=== PATIENT | male | born 1940 | race African-American/Black ===

== ENCOUNTER 2020-10-05 17:01 | Inpatient (IN) | payer OTHER ==
[~2020-10-05] VITALS: Ht 172.7 cm; Wt 108.0 kg
[2020-10-05] MEDS ORDERED: SODIUM CHLORIDE 0.9% 1,000 ML IV ONE ×2 (17:45)
[2020-10-05] MEDS ORDERED: PIPERACILLIN-TAZOB 3.375GM 100 ML IV ONE (17:45)
[2020-10-05 19:47] LABS: Basophils # (auto) 0 10 ^3/uL (0-0.2); Basophils % (auto) 0.8 % (0.0-2.0); Eosinophils # (auto) 0.1 10 ^3/uL (0-0.8); Hematocrit 39.1 % (41.0-53.0); Lymphocytes % (auto) 26.2 % (10.0-50.0); Mean Corpuscular Hgb Conc. 33.2 g/dL (32.0-36.0); Mean Corpuscular Volume 87.4 fL (80.0-100.0); Monocytes # (auto) 0.3 10 ^3/uL (0-1.3); Monocytes % (auto) 8.8 % (0.0-12.0); Neutrophils # (auto) 2.2 10 ^3/uL (1.6-8.6); Neutrophils % (auto) 60.2 % (37.0-80.0); Nucleated Red Blood Cells % 0.2 %; Platelet Count (auto) 170 10^3/uL (140-450); Red Blood Cells 4.47 10^6/uL (4.5-5.90); Red Cell Distribution Width 15.1 % (11.8-14.3); White Blood Cell 3.7 10^3/uL (4.4-10.8)
[2020-10-05 20:07] LABS: Albumin 3.4 g/dL (3.4-5.0); Potassium 4.2 mmol/L (3.5-5.1)
[2020-10-05 20:10] LABS: BUN/Creatinine Ratio 15.9; Bilirubin, Total 0.4 mg/dL (0.2-1.0); Lactic Acid w/Reflex 2.5 mmol/L (0.4-2.0); Total Protein 8.1 g/dL (6.4-8.2)
[2020-10-05] MEDS ORDERED: LABETALOL HCL 5 MG/ML 4ML SYRINGE IV ONE (22:00)
[2020-10-05] MEDS ORDERED: MORPHINE SULFATE 4 MG/ML SYR/VIAL IV PRN (22:30)
[2020-10-05] MEDS ORDERED: ONDANSETRON HCL 4 MG/2 ML VIAL IV PRN (22:30)
[2020-10-05] MEDS ORDERED: NITROGLYCERIN 0.4 MG SL TAB SL PRN (22:30)
[2020-10-05] MEDS ORDERED: MORPHINE SULF INJ 2 MG/ML SYRINGE 1ML IV PRN (22:30)
[2020-10-05] MEDS ORDERED: HYDROcodone-ACET 5/325MG TAB PO PRN (22:30)
[2020-10-05] MEDS ORDERED: DEXTROSE (50%) 50ML SYRG IV PRN (22:30)
[2020-10-05] MEDS: hydrALAZINE HCL 20 MG/ML VL IV PRN (23:25)
[2020-10-06] VITALS (7 sets, daily range): BP systolic 159–202; BP diastolic 77–101
--- NOTE | 2020-10-06 00:24 | NUR ---
Telemetry admit from ER LIZET BRENNAN admitted to Telemetry unit. Patient oriented to ANNE WALLS RN primary RN, unit, room, bed, and unit policies regarding patient care and visiting hours. Patient now on continuous telemetry monitoring, tele box #87 and telemetry reading on arrival to unit is 86. Patient weighed by bedscale and encouraged to call if they need something. All questions and concerns addressed, patient verbalized understanding. Will continue to monitor.
--- NOTE | 2020-10-06 01:05 | NUR ---
Paged Hospitalist Patient's blood pressure 199/97. Paged Hospitalist. Received new orders for hydralazine 50mg PO TID start NOW and amlodipine 10mg PO qd start NOW. Orders read back and verified. Will carry out and will continue to monitor.
[2020-10-06] MEDS: hydrALAZINE HCL 25 MG TAB PO SCH ×4 (01:15→21:57)
[2020-10-06] MEDS: amLODIPine BESYLATE 5 MG TAB PO SCH ×2 (01:15→10:10)
[2020-10-06] MEDS: hydrALAZINE HCL 20 MG/ML VL IV PRN ×3 (03:34→23:50)
[2020-10-06] MEDS: SODIUM CHLOR 0.9% PF (SALINE LOCK) 10ML VIAL/SYR IV SCH ×3 (06:29→21:56)
[2020-10-06] MEDS: ACCU-CHEK COMFORT CURVE STRIP VI SCH ×4 (06:30→21:57)
[2020-10-06] MEDS: InsuLIN REG 1unit/0.01ml Soln (100units/ml) SC SCH ×4 (06:30→22:00)
[2020-10-06 07:12] LABS: Basophils # (auto) 0 10 ^3/uL (0-0.2); Basophils % (auto) 0.6 % (0.0-2.0); Eosinophils # (auto) 0.1 10 ^3/uL (0-0.8); Eosinophils % (auto) 3.1 % (0.0-7.0); Hematocrit 40.2 % (41.0-53.0); Hemoglobin 12.8 g/dL (13.5-17.5); Lymphocytes # (auto) 0.9 10 ^3/uL (0.4-5.4); Lymphocytes % (auto) 24.9 % (10.0-50.0); Mean Corpuscular Hemoglobin 27.7 pg (28.0-32.0); Mean Corpuscular Hgb Conc. 31.9 g/dL (32.0-36.0); Mean Corpuscular Volume 86.7 fL (80.0-100.0); Monocytes # (auto) 0.4 10 ^3/uL (0-1.3); Monocytes % (auto) 11.5 % (0.0-12.0); Neutrophils # (auto) 2.2 10 ^3/uL (1.6-8.6); Neutrophils % (auto) 59.9 % (37.0-80.0); Nucleated Red Blood Cells % 0.3 %; Platelet Count (auto) 162 10^3/uL (140-450); Red Blood Cells 4.64 10^6/uL (4.5-5.90); Red Cell Distribution Width 15.1 % (11.8-14.3); White Blood Cell 3.7 10^3/uL (4.4-10.8)
[2020-10-06 07:23] LABS: Albumin 3.1 g/dL (3.4-5.0); Calcium 9.1 mg/dL (8.5-10.1)
[2020-10-06 07:30] LABS: BUN/Creatinine Ratio 15.9; Bilirubin, Total 0.5 mg/dL (0.2-1.0); Total Protein 7.5 g/dL (6.4-8.2)
--- NOTE | 2020-10-06 07:40 | NUR ---
Opening Shift Note Assumed care of patient, awake and alert. No S/S of distress/SOB or pain. Instructed on POC and to call for assist PRN, will continue to monitor for changes Q1hr and PRN.
--- NOTE | 2020-10-06 07:40 | NUR ---
Paged Hospitalist Paged hospitalist regarding blood pressure 192/86 after administration of scheduled blood pressure medication. Received new order for hydralazine 10mg IV ONCE NOW and to increase hydralazine 10mg IV q4hr PRN to hydralazine 20mg IV q4hr for SBP >160. Orders read back and verified. Will carry out and will continue to monitor.
[2020-10-06] MEDS ORDERED: hydrALAZINE HCL 20 MG/ML VL IV ONE (07:45)
[2020-10-06] MEDS: ZINC SULFATE 220mg CAP or TAB PO SCH (10:00)
[2020-10-06] MEDS: ASCORBIC ACID 500 MG TAB PO SCH ×2 (10:06→21:57)
[2020-10-06] MEDS: FAMOTIDINE 20 MG TAB PO SCH ×2 (10:06→21:57)
[2020-10-06] MEDS: MULTIPLE VITAMIN TAB PO SCH (10:06)
[2020-10-06] MEDS: cefTRIAXone 1GM/50ML D5W 50 ML IV SCH (10:11)
--- NOTE | 2020-10-06 10:45 | NUR ---
WOUND CARE NOTE: IN TO SEE PATIENT AT THIS TIME PER WOUND CARE CONSULT REQUEST. PATIENT ADMITTED TO [facility] WITH DIAGNOSIS OF RIGHT FOOT INFECTION. CURRENT SHELIA SCORE IS 19. PATIENT IS ABLE TO SELF AMBULATE, TURN/REPOSITION SELF. WOUND PHOTO TAKEN UPON ADMIT, BY BEDSIDE NURSE FOR REFERENCE. PATIENT STATES THAT HE HAS HAD WOUND FOR AT LEAST 1.5 YEARS. HE RECEIVES HOME HEALTHCARE/DRESSING CHANGES. HIS PCP ADVISED HIM TO GO THE ER, SCAN IS QUESTIONABLE FOR OSTEOMYELITIS IN HALLUX BONE. PODIATRY CONSULT PENDING. 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 75 PERCENT OF WOUND BED IS COVERED IN BLACK ESCHAR SCAB. REMAINING 25 PERCENT IS OPEN WITH DUSKY RED WOUND BED. CLEANSED WOUND WITH WOUND CLEANSER, PATTED DRY WITH STERILE GAUZE. APPLIED THERAHONEY INTO OPEN WOUND BED, BETADINE IRRIGATION TO BLACK ESCHAR PORTION OF WOUND. COVERED WITH TELFA, WRAPPED FOOT WITH KERLIX, SECURING WITH TAPE. RECOMMEND: SKIN/WOUND CARE PLAN, ELEVATION OF RIGHT FOOT UP ON PILLOWS FOR EDEMA CONTROL; EOD/PRN DRESSING CHANGE, PODIATRY CONSULT (PENDING); DIETARY CONSULT (ORDERED), CONTINUED MONITORING BY WOUND CARE TEAM. WILL DEFER ALL OTHER RECOMMENDATIONS REGARDING THIS WOUND TO PODIATRY AT THIS POINT. Addendum: 10/06/20 at 1559 by Sho Jc RN Amended: Links added.
--- NOTE | 2020-10-06 11:09 | NUR ---
Nutrition Consult Consider adding MVI and Vitamin C 500 mg BID for wound healing Est energy needs 2049-1036 kcal (18-20 kcal/kg BW 97.5kg) Est protein needs 70-91g (1-1.3g/kg IBW 70kg) Will monitor and reassess prn. Addendum: 10/06/20 at [address] Amended: Links added.
[2020-10-06] MEDS: CLINDAMYCIN 300MG IV 50 ML IV SCH ×2 (14:00→21:56)
--- NOTE | 2020-10-06 17:28 | NUR ---
THIS RN GAVE PT. HYDRALAZINE FOR BP OF 199/101. THIS RN WILL CONTINUE TO MONITOR PT. DOCTOR IS AWARE OF BLOOD PRESSURE RUNNING HIGH. THIS RN SPOKE TO PT'S. TO GET LIST OF CURRENT MEDICATIONS FOR BLOOD PRESSURE. THE MEDICATIONS ARE NOW RECONCILED.
[2020-10-06] MEDS ORDERED: DULO60CA PO (20:45)
[2020-10-06] MEDS ORDERED: NIFE90TA49 PO (20:45)
[2020-10-06] MEDS ORDERED: ATO40T PO (20:45)
[2020-10-06] MEDS ORDERED: CARV6.2551 PO (20:45)
[2020-10-06] MEDS ORDERED: INS7030I SC (20:46)
[2020-10-06] MEDS ORDERED: TAMS1CAP25 PO (20:46)
[2020-10-06] MEDS ORDERED: CLON0.2D6 PO (20:46)
[2020-10-06] MEDS ORDERED: GABA-339 PO (20:46)
--- NOTE | 2020-10-07 00:52 | NUR ---
HIGH B/P AT 2200 PATIENTS B/P WAS 202/101 . PATIENT HAD SCHEDULED HYDRALAZINE ADMINISTERED. UPON RECHECK IT WAS 206/110 PULSE OF 76. I ADMINISTERED HYDRALAZINE 20MG IVP WAITED 1 HOUR AND RECHECKED PATIENTS B/P AND IT WAS 197/99 PULSE OF 80. HOSPITALIST PAGED.
[2020-10-07] MEDS ORDERED: LABETALOL HCL 5 MG/ML 4ML SYRINGE IV ONE (01:15)
--- NOTE | 2020-10-07 02:39 | NUR ---
LABETALOL B/P 197/99 LABETALOL GIVEN. 10 MG IVP. RECHECK AFTER 1 HOUR 190/79 HR 73
[2020-10-07] MEDS ORDERED: hydrALAZINE HCL 20 MG/ML VL IV ONE (03:00)
--- NOTE | 2020-10-07 04:22 | NUR ---
HYDRALAZINE GIVEN B/P AT 0310 190/79. CHARLIE BONILLA ORDERED HYDRALAZINE 15 MG. UPON RECHECK B/P 149/89
[2020-10-07 05:00] VITALS: BP 149/89
[2020-10-07] MEDS: CLINDAMYCIN 300MG IV 50 ML IV SCH ×3 (06:20→22:03)
[2020-10-07] MEDS: SODIUM CHLOR 0.9% PF (SALINE LOCK) 10ML VIAL/SYR IV SCH ×3 (06:20→22:03)
[2020-10-07 06:22] LABS: Basophils # (auto) 0.1 10 ^3/uL (0-0.2); Basophils % (auto) 1.1 % (0.0-2.0); Eosinophils # (auto) 0.1 10 ^3/uL (0-0.8); Eosinophils % (auto) 1.9 % (0.0-7.0); Hematocrit 43.6 % (41.0-53.0); Hemoglobin 14.3 g/dL (13.5-17.5); Lymphocytes # (auto) 0.9 10 ^3/uL (0.4-5.4); Lymphocytes % (auto) 20.8 % (10.0-50.0); Mean Corpuscular Hemoglobin 28.3 pg (28.0-32.0); Mean Corpuscular Hgb Conc. 32.8 g/dL (32.0-36.0); Mean Corpuscular Volume 86.3 fL (80.0-100.0); Monocytes # (auto) 0.4 10 ^3/uL (0-1.3); Monocytes % (auto) 8.8 % (0.0-12.0); Neutrophils % (auto) 67.4 % (37.0-80.0); Nucleated Red Blood Cells % 0.1 %; Platelet Count (auto) 178 10^3/uL (140-450); Red Blood Cells 5.05 10^6/uL (4.5-5.90); Red Cell Distribution Width 15.2 % (11.8-14.3); White Blood Cell 4.4 10^3/uL (4.4-10.8)
[2020-10-07] MEDS: hydrALAZINE HCL 25 MG TAB PO SCH ×3 (06:25→22:04)
[2020-10-07] MEDS: ACCU-CHEK COMFORT CURVE STRIP VI SCH ×4 (06:26→21:46)
[2020-10-07 06:33] LABS: Albumin 3.5 g/dL (3.4-5.0); Calcium 9.6 mg/dL (8.5-10.1); Potassium 3.8 mmol/L (3.5-5.1)
[2020-10-07 06:36] LABS: INR 1.08 (0.9-1.15)
[2020-10-07 06:37] LABS: BUN/Creatinine Ratio 14.3; Bilirubin, Total 0.6 mg/dL (0.2-1.0); Total Protein 8.2 g/dL (6.4-8.2)
[2020-10-07] MEDS: InsuLIN REG 1unit/0.01ml Soln (100units/ml) SC SCH ×4 (06:38→21:47)
--- NOTE | 2020-10-07 07:06 | NUR ---
OPENING SHIFT NOTE Assumed care of patient from pharmacy operations manager RN. Patient is alert and oriented x4, no signs of distress noted, patient denies pain. He was updated on the plan of care and verbalized understanding. Bed is locked, in the lowest position, side rails are up x2 and call light is in reach. Patient was encouraged to call for assistance as needed.
[2020-10-07] MEDS: cefTRIAXone 1GM/50ML D5W 50 ML IV SCH (08:44)
[2020-10-07 08:46] LABS: Urine Bacteria FEW /hpf (None Seen); Urine Blood TRACE /uL (Negative); Urine Specific Gravity 1.015 (1.001-1.035); Urine Sperm PRESENT /hpf (None Seen); Urine WBC 1 /hpf (0 - 3)
[2020-10-07 09:16] VITALS: BP 166/84
[2020-10-07] MEDS: ZINC SULFATE 220mg CAP or TAB PO SCH (09:59)
[2020-10-07] MEDS: amLODIPine BESYLATE 5 MG TAB PO SCH (09:59)
[2020-10-07] MEDS: MULTIPLE VITAMIN TAB PO SCH (09:59)
[2020-10-07] MEDS: FAMOTIDINE 20 MG TAB PO SCH ×2 (09:59→22:03)
[2020-10-07] MEDS: ASCORBIC ACID 500 MG TAB PO SCH ×2 (10:00→22:03)
--- NOTE | 2020-10-07 11:59 | NUR ---
MIDOU PAGED regarding patient blood glucose 435, message left awaiting call back.
--- NOTE | 2020-10-07 12:56 | NUR ---
MIDOU PAGED regarding patient blood glucose 435, message left awaiting call back.
[2020-10-07 13:00] VITALS: BP 155/88
--- NOTE | 2020-10-07 13:12 | NUR ---
MIDOU AT BEDSIDE Updated on the patient status, plan of care was discussed with the patient and he verbalized understanding. No new orders received.
--- NOTE | 2020-10-07 16:44 | NUR ---
CALL FROM FAMILY Call from patient's daughter Latonia. After verification of password she was updated on the patient status and the plan of care. She verbalized understanding and all questions were answered.
[2020-10-07 17:25] VITALS: BP 160/89
[2020-10-07] MEDS ORDERED: INSULIN 70/30 1unit/0.01ml Susp (100units/ml) SC SCH (17:30)
[2020-10-07] MEDS: hydrALAZINE HCL 20 MG/ML VL IV PRN (17:33)
--- NOTE | 2020-10-07 19:20 | NUR ---
Opening Shift Note Received report from Janet RODRÍGUEZ. Assumed care of patient, awake and alert. No S/S of distress/SOB or pain. Instructed on POC and to call for assist PRN, will continue to monitor for changes Q1hr and PRN.
[2020-10-07 21:00] VITALS: BP 191/103
[2020-10-08] MEDS: hydrALAZINE HCL 20 MG/ML VL IV PRN ×3 (00:03→20:55)
[2020-10-08 05:24] VITALS: BP 193/101
[2020-10-08] MEDS: SODIUM CHLOR 0.9% PF (SALINE LOCK) 10ML VIAL/SYR IV SCH ×3 (05:49→21:55)
[2020-10-08] MEDS: CLINDAMYCIN 300MG IV 50 ML IV SCH ×3 (05:49→21:55)
[2020-10-08 06:18] LABS: Basophils # (auto) 0.1 10 ^3/uL (0-0.2); Eosinophils # (auto) 0.1 10 ^3/uL (0-0.8); Eosinophils % (auto) 1.4 % (0.0-7.0); Hematocrit 42.4 % (41.0-53.0); Hemoglobin 14.4 g/dL (13.5-17.5); Lymphocytes # (auto) 1.1 10 ^3/uL (0.4-5.4); Lymphocytes % (auto) 20.3 % (10.0-50.0); Mean Corpuscular Hemoglobin 29.2 pg (28.0-32.0); Mean Corpuscular Hgb Conc. 34.1 g/dL (32.0-36.0); Mean Corpuscular Volume 85.6 fL (80.0-100.0); Monocytes # (auto) 0.7 10 ^3/uL (0-1.3); Monocytes % (auto) 12.9 % (0.0-12.0); Neutrophils # (auto) 3.5 10 ^3/uL (1.6-8.6); Neutrophils % (auto) 64.4 % (37.0-80.0); Nucleated Red Blood Cells % 0.1 %; Platelet Count (auto) 187 10^3/uL (140-450); Red Blood Cells 4.95 10^6/uL (4.5-5.90); Red Cell Distribution Width 15.2 % (11.8-14.3); White Blood Cell 5.5 10^3/uL (4.4-10.8)
[2020-10-08 06:24] LABS: BUN/Creatinine Ratio 13.7; Calcium 9.4 mg/dL (8.5-10.1); Potassium 3.5 mmol/L (3.5-5.1)
[2020-10-08] MEDS: ACCU-CHEK COMFORT CURVE STRIP VI SCH ×4 (06:32→21:57)
[2020-10-08] MEDS: hydrALAZINE HCL 25 MG TAB PO SCH ×3 (06:32→21:56)
[2020-10-08] MEDS: InsuLIN REG 1unit/0.01ml Soln (100units/ml) SC SCH ×4 (06:35→22:05)
--- NOTE | 2020-10-08 07:30 | NUR ---
OPENING SHIFT NOTE RECEIVED REPORT AND CONTINUATION OF CARE OF PATIENT. AWAKE,ALERT.ORIENTED SITTING UP,DANGLING PATIENT SHOWS NO SIGNS OF DISTRESS OR PAIN. DISCUSSED THE PLAN OF CARE AND NURSING ROUTINES WITH PATIENT. BED IN LOWEST POSITION, SIDE RAILS UP X2, AND THE CALL LIGHT IS WITHIN REACH,PATIENT REMINDED,INSTRUCTED TO CALL FOR ASSISTANCE,VERBALIZED UNDERSTANDING.
[2020-10-08] MEDS ORDERED: INSULIN 70/30 1unit/0.01ml Susp (100units/ml) SC SCH (08:00)
[2020-10-08 08:30] VITALS: BP 148/88
[2020-10-08] MEDS: MULTIPLE VITAMIN TAB PO SCH (10:43)
[2020-10-08] MEDS: FAMOTIDINE 20 MG TAB PO SCH ×2 (10:43→21:57)
[2020-10-08] MEDS: ZINC SULFATE 220mg CAP or TAB PO SCH (10:43)
[2020-10-08] MEDS: cefTRIAXone 1GM/50ML D5W 50 ML IV SCH (10:43)
[2020-10-08] MEDS: ASCORBIC ACID 500 MG TAB PO SCH ×2 (10:43→21:57)
[2020-10-08] MEDS: amLODIPine BESYLATE 5 MG TAB PO SCH (10:44)
--- NOTE | 2020-10-08 11:40 | NUR ---
MD VISIT DR. THOMPSON HERE TO SEE AND EXAMINED PATIENT,RECEIVED ORDER TO CONSULT RN ICU,SEE ORDER WRITTEN
--- NOTE | 2020-10-08 12:00 | NUR ---
MD VISIT DR. GARRETT HERE TO SEE AND EXAMINED PATIENT,RECEIVED ORDER ,PICC LINE INFORMED CONSENT SIGNED BY DR. GARRETT
--- NOTE | 2020-10-08 12:43 | NUR ---
INFORMED PATIENT RE NEEDING PICC LINE EXPLAIN IMPORTANCE AND INDICATION,SIGNED CONSENT FOR PICC LINE
[2020-10-08 13:00] VITALS: BP 170/99
--- NOTE | 2020-10-08 13:40 | NUR ---
DR. GARRETT CALLED STATED OK FOR DR. HAYES TO SEE PATIENT
[2020-10-08] MEDS ORDERED: ONDANSETRON HCL 4 MG/2 ML VIAL IV ONE (14:00)
--- NOTE | 2020-10-08 14:00 | NUR ---
[facility] C[facility] MAINTENANCE SUPERVISOR HERE TO SEE AND EXAMINED PATIENT,RECEIVED ORDERS
[2020-10-08] MEDS: CLOPIDOGREL BISULFATE 75 MG TAB PO SCH (16:11)
[2020-10-08] MEDS: ASPirin 81 mg TAB PO SCH (16:11)
[2020-10-08] MEDS: SODIUM CHLORIDE 0.9% 1,000 ML IV SCH (16:11)
--- NOTE | 2020-10-08 17:09 | NUR ---
PICC LINE RN INFORMED OF CONSULT STATED DID NOT GET ORDER,ORDER REVIEWED WAS ENTERED WRONG ,ORDER RE ENTERED
[2020-10-08 17:16] VITALS: BP 195/112
--- NOTE | 2020-10-08 17:30 | NUR ---
PATIENT NOT IN ROOM,PER ROOM MATE PATIENT IS WALKING AND WENT OUT THE ROOM,SEARCH AROUND FOUND HIM IN ROOM 285 SITTING IN BED,PATIENT STATED "THIS IS MY ROOM" PATIENT RE ORIENTED,STATED CA OT REMEMBER HOW HE GETS TO THIS ROOM.ASSISTED BACK TO BED,RE ORIENTED.
[2020-10-08] MEDS: INSULIN 70/30 1unit/0.01ml Susp (100units/ml) SC SCH (18:20)
--- NOTE | 2020-10-08 18:30 | NUR ---
DAUGHTER TIFFANIE CALLED (PASSWORD VERIFIED) UPDATED WITH PATIENT STATUS, PLAN OF CARE,EXPECTED PROCEDURE IN A.M.
--- NOTE | 2020-10-08 18:50 | NUR ---
IV G#20 TO LEFT HAND STARTED
[2020-10-08] MEDS: ATORVASTATIN 20 MG TAB PO SCH (21:56)
[2020-10-08] MEDS: ACETYLCYSTEINE ORAL for CIN 20%(200MG/ML) 4ML PO SCH (21:56)
[2020-10-08 22:40] VITALS: BP 162/85
[2020-10-09] MEDS: hydrALAZINE HCL 20 MG/ML VL IV PRN ×2 (03:33→08:57)
--- NOTE | 2020-10-09 05:18 | NUR ---
Call to Dr. Smith's exchange, left message for call back re elevated blood pressure. Awaiting for call back.
[2020-10-09 05:26] VITALS: BP 207/93
[2020-10-09] MEDS: SODIUM CHLOR 0.9% PF (SALINE LOCK) 10ML VIAL/SYR IV SCH ×3 (05:42→22:16)
[2020-10-09] MEDS: CLINDAMYCIN 300MG IV 50 ML IV SCH ×3 (05:42→22:16)
[2020-10-09] MEDS: hydrALAZINE HCL 25 MG TAB PO SCH ×4 (05:43→22:16)
--- NOTE | 2020-10-09 06:30 | NUR ---
Patient prepped for surgery. EKG done, bilateral groin shaved, CHG wipes done, complete linen change done.
[2020-10-09] MEDS: InsuLIN REG 1unit/0.01ml Soln (100units/ml) SC SCH ×4 (06:38→22:20)
[2020-10-09] MEDS: ACCU-CHEK COMFORT CURVE STRIP VI SCH ×4 (06:38→22:19)
[2020-10-09] MEDS: SODIUM CHLORIDE 0.9% 1,000 ML IV SCH ×2 (06:57→23:35)
--- NOTE | 2020-10-09 07:30 | NUR ---
OPENING SHIFT NOTE RECEIVED REPORT AND CONTINUATION OF CARE OF PATIENT. AWAKE,ALERT.ORIENTED,IN REST ROOM, PATIENT SHOWS NO SIGNS OF DISTRESS OR CHEST PAIN. DISCUSSED THE PLAN OF CARE AND NURSING ROUTINES WITH PATIENT.TO KEEP NPO FOR PROCEDURE, BED IN LOWEST POSITION, SIDE RAILS UP X2, AND THE CALL LIGHT IS WITHIN REACH,PATIENT REMINDED,INSTRUCTED TO CALL FOR ASSISTANCE,VERBALIZED UNDERSTANDING.
[2020-10-09 07:46] LABS: Basophils # (auto) 0 10 ^3/uL (0-0.2); Basophils % (auto) 0.8 % (0.0-2.0); Eosinophils # (auto) 0.2 10 ^3/uL (0-0.8); Hematocrit 42.4 % (41.0-53.0); Hemoglobin 14.2 g/dL (13.5-17.5); Mean Corpuscular Hemoglobin 28.9 pg (28.0-32.0); Mean Corpuscular Hgb Conc. 33.4 g/dL (32.0-36.0); Mean Corpuscular Volume 86.6 fL (80.0-100.0); Monocytes # (auto) 0.6 10 ^3/uL (0-1.3); Monocytes % (auto) 10.7 % (0.0-12.0); Neutrophils # (auto) 3.9 10 ^3/uL (1.6-8.6); Neutrophils % (auto) 68.5 % (37.0-80.0); Nucleated Red Blood Cells % 0.1 %; Platelet Count (auto) 178 10^3/uL (140-450); Red Cell Distribution Width 15.2 % (11.8-14.3); White Blood Cell 5.7 10^3/uL (4.4-10.8)
[2020-10-09 08:00] VITALS: BP 185/94
[2020-10-09] MEDS: INSULIN 70/30 1unit/0.01ml Susp (100units/ml) SC SCH ×2 (08:00→18:11)
[2020-10-09 08:02] LABS: INR 1.13 (0.9-1.15); Partial Thromboplastin Time 29.2 sec (23.0-31.2)
[2020-10-09 08:10] LABS: BUN/Creatinine Ratio 13.6; Calcium 9.3 mg/dL (8.5-10.1); Potassium 3.5 mmol/L (3.5-5.1)
--- NOTE | 2020-10-09 08:58 | NUR ---
BP 194/114,APRESOLINE 20 MG SLOW IVP GIVEN SEE eMAR
--- NOTE | 2020-10-09 09:45 | NUR ---
BP RECHECKED 179/92
[2020-10-09] MEDS: FAMOTIDINE 20 MG TAB PO SCH ×2 (11:01→22:18)
[2020-10-09] MEDS: cefTRIAXone 1GM/50ML D5W 50 ML IV SCH (11:01)
[2020-10-09] MEDS: MULTIPLE VITAMIN TAB PO SCH (11:01)
[2020-10-09] MEDS: ZINC SULFATE 220mg CAP or TAB PO SCH (11:01)
[2020-10-09] MEDS: ASCORBIC ACID 500 MG TAB PO SCH ×2 (11:01→22:18)
[2020-10-09] MEDS: ASPirin 81 mg TAB PO SCH (11:01)
[2020-10-09] MEDS: CLOPIDOGREL BISULFATE 75 MG TAB PO SCH (11:02)
[2020-10-09] MEDS: amLODIPine BESYLATE 5 MG TAB PO SCH (11:02)
[2020-10-09] MEDS: ACETYLCYSTEINE ORAL for CIN 20%(200MG/ML) 4ML PO SCH ×2 (11:02→22:18)
[2020-10-09 12:00] VITALS: BP 179/92
[2020-10-09 13:08] LABS: Sodium Urine 42 mmol/L (40-220)
[2020-10-09 13:12] LABS: Alcohol, Urine < 3.0 mg/dL (0-10); Amphetamine Screen, Urine NEGATIVE (NEGATIVE); Barbiturate Scree,Urine NEGATIVE (NEGATIVE); Benzodiazephine Screen, Urine NEGATIVE (NEGATIVE); Cannabinoid Screen, Urine NEGATIVE (NEGATIVE); Cocaine Screen, Urine NEGATIVE (NEGATIVE); Creatinine, Urine 206 mg/dL (30.0-125.0); Opiate Scree,Urine NEGATIVE (NEGATIVE); Phencyclidine Screen, Urine NEGATIVE (NEGATIVE)
[2020-10-09 13:13] LABS: Protein, Urine 246.7 mg/dL (0.0-11.9)
--- NOTE | 2020-10-09 13:15 | NUR ---
PATIENT WAS TRANSPORTED TO ODD JOB WORKER PER RN COVERING FOR PRIMARY NURSE (WAS ON LUNCH)
--- NOTE | 2020-10-09 13:42 | NUR ---
MD Ching made aware of elevated blood pressure of 222/99. New orders received (see eMar) and read back for verification. Will proceed to carry out.
[2020-10-09] MEDS ORDERED: cloNIDine HCL 0.1 MG TAB PO ONE (13:45)
[2020-10-09] MEDS ORDERED: SODIUM CHL 0.9% 0 ML ONE (14:04)
[2020-10-09] MEDS ORDERED: ANGIOMAX 250 MG VIAL IV ONE (14:04)
[2020-10-09] MEDS ORDERED: fentaNYL CITRATE 100 MCG/2 ML VL ONE (14:04)
[2020-10-09] MEDS ORDERED: MIDAZOLAM HCL 1MG/1ML-2 ML VIAL ONE (14:04)
[2020-10-09] MEDS ORDERED: HEPARIN IN NS 1000Units/500mL 0 ML ONE (14:08)
[2020-10-09] MEDS ORDERED: IOHEXOL 350 MG/ML 100ML IJ ONE (14:08)
[2020-10-09] MEDS ORDERED: LIDOCAINE 2%HCL (LOCAL ANESTH.) INJ 20ML MDV ONE (14:08)
--- NOTE | 2020-10-09 14:35 | NUR ---
MD VISIT DR. GARRETT HERE TO SEE AND EXAMINED PATIENT,INFORMED OF PATIENTS HIGH BLOOD PRESSURE AND HOME MEDICATIONS THAT IS NOT STARTED HERE,STATED HE WILL REVIEW HOME MEDICATIONS.
--- NOTE | 2020-10-09 14:41 | NUR ---
Nutrition Followup Notes Wt: 97.0 kg Pt was sleeping when rounded this morning. per records pt with osteomyelitis. pt awaiting possible sx. pt is currently on CCHO 60 gm cardiac diet with adequate PO of > 75x 4 per RN doc. pt was NPO this am for angiogram Est energy needs 6134-1340 kcal (18-20 kcal/kg BW 97.5kg) Est protein needs 70-91g (1-1.3g/kg IBW 70kg) Will monitor and reassess prn. LABS: BUN 46 H CREAT 3.39 H GLU 200 H GI: Pt had 1 BM today per RN doc. BS: 18 mod risk wounds. Refer to wound assessment report for further details. PES: Obesity aeb pt with a BMI of 32.7kg/m2 r/t caloric intake in excess of needs Altered nutrition related labs aeb pt with elevated RFTs, hyperglycemia, hypoalb r/t current and chronic medical condition Comments: Will continue to monitor PO status, skin status, pertinent labs and weight trends. Will f/u in 3-5 days Rec: 1) refer pt to [facility] on Dc. 2) Continue current plan of care. 3) Consider adding MVI and Vitamin C 500 mg BID for wound healing
--- NOTE | 2020-10-09 15:50 | NUR ---
Report given to primary RNFang via telephone by MARCOS Pavon.
--- NOTE | 2020-10-09 15:53 | NUR ---
RECEIVED REPORT FROM KAVITHA RODRÍGUEZ RE PATIENT STATUS,PERIPHERAL ANGIOGRAM CANCELLED,RE SCHEDULED TOMORROW PER REPORT
--- NOTE | 2020-10-09 16:00 | NUR ---
Patient transported to telemetry unit by this RN and MARCOS Pavon. conveyor monitor in place. NAD noted upon departure. Primary RNFang present at bedside to receive patient. Bed set in lowest locked position with side rails up x 2 for safety, call light is within reach and bed alarm set on for safety. Care endorsed to MARCOS Headley.
--- NOTE | 2020-10-09 16:05 | NUR ---
RECEIVED PATIENT VIA BED AAOX4,NO DISTRESS ,NO DISCOMFORT MEDICATED WITH CLONIDINE BY SPRAY GUNNER RN,WILL RE CHECK VITAL SIGNS.
[2020-10-09] MEDS: cloNIDine HCL 0.1 MG TAB PO PRN (16:10)
--- NOTE | 2020-10-09 16:15 | NUR ---
Spoke to patient's daughter, Latonia, via telephone. After verifying patient verification password, updated Latonia on patient status and plan for procedure tomorrow AM. All questions answered at this time.
[2020-10-09 16:57] VITALS: BP 159/84
[2020-10-09 22:00] VITALS: BP 180/86
[2020-10-09] MEDS: ATORVASTATIN 20 MG TAB PO SCH (22:17)
[2020-10-10 05:00] VITALS: BP 197/80
[2020-10-10] MEDS: CLINDAMYCIN 300MG IV 50 ML IV SCH ×3 (05:39→21:21)
[2020-10-10] MEDS: hydrALAZINE HCL 25 MG TAB PO SCH ×3 (05:39→21:20)
[2020-10-10] MEDS: SODIUM CHLOR 0.9% PF (SALINE LOCK) 10ML VIAL/SYR IV SCH ×4 (05:39→21:23)
[2020-10-10] MEDS: ACCU-CHEK COMFORT CURVE STRIP VI SCH ×4 (06:01→22:00)
[2020-10-10] MEDS: InsuLIN REG 1unit/0.01ml Soln (100units/ml) SC SCH ×4 (06:01→21:23)
[2020-10-10] MEDS ORDERED: fentaNYL CITRATE 100 MCG/2 ML VL ONE (06:54)
[2020-10-10] MEDS ORDERED: ANGIOMAX 250 MG VIAL IV ONE (06:54)
[2020-10-10] MEDS ORDERED: LIDOCAINE 2%HCL (LOCAL ANESTH.) INJ 20ML MDV ONE (06:55)
[2020-10-10] MEDS ORDERED: HEPARIN IN NS 1000Units/500mL 1,500 ML ONE (06:55)
[2020-10-10] MEDS ORDERED: SODIUM CHL 0.9% 50 ML ONE (06:55)
[2020-10-10] MEDS ORDERED: MIDAZOLAM HCL 1MG/1ML-2 ML VIAL ONE (06:55)
[2020-10-10] MEDS ORDERED: IODIXANOL 320MG/ML 100ML BTL IV ONE (07:26)
[2020-10-10] MEDS ORDERED: hydrALAZINE HCL 20 MG/ML VL ONE ×2 (07:34→08:17)
[2020-10-10] MEDS ORDERED: VERAPAMIL 2.5MG/ML INJ 2ML VIAL IV ONE (07:45)
[2020-10-10] MEDS ORDERED: NITROGLYCERIN 5MG/ML 10ML VIAL IV ONE (07:46)
--- NOTE | 2020-10-10 08:31 | NUR ---
Patient brought to recovery via bed, report received from MARCOS Moeller and Jeovany RN. Patient is AO x 4, and denies pain at this time. NAD noted. Right groin site has scant blood to dressing, circled to monitor for bleeding, no s/s of hematoma formation. Positive circulation, movement and sensation noted to BLE. Patient educated on post-procedure care and flat time, verbalized understanding.
--- NOTE | 2020-10-10 08:40 | NUR ---
Updated patient's , Aixa, via telephone on patient status. All questions answered at this time.
--- NOTE | 2020-10-10 08:46 | NUR ---
Patient resting in bed with eyes closed. Breaths are even and unlabored. NAD noted. Right groin site remains unchanged.
--- NOTE | 2020-10-10 08:50 | NUR ---
Report given to primary RN, Bertram.
[2020-10-10] MEDS: amLODIPine BESYLATE 5 MG TAB PO SCH (08:57)
--- NOTE | 2020-10-10 09:17 | NUR ---
Patient taken to telemetry unit via bed, nuclear monitoring technician in place. NAD noted upon transport. Primary RNBertram present at bedside to witness right groin site unchanged from previous notation, AND no s/s of hematoma formation. Bed set in lowest locked position with side rails up x2, and call light is within reach. Care endorsed to MARCOS Burden.
--- NOTE | 2020-10-10 09:30 | NUR ---
pt back to unit No s/s of distress, SOB or pain noted. Bed in lowest position, side rails up x2 and call light within reach. Groin site dressing intact, so s/s of hematoma. Pt instructed to lay flat until 1100, pt verbalized understanding.
[2020-10-10] MEDS: FAMOTIDINE 20 MG TAB PO SCH ×2 (10:05→21:20)
[2020-10-10] MEDS: MULTIPLE VITAMIN TAB PO SCH (10:05)
[2020-10-10] MEDS: ZINC SULFATE 220mg CAP or TAB PO SCH (10:05)
[2020-10-10] MEDS: ASPirin 81 mg TAB PO SCH (10:05)
[2020-10-10] MEDS: ASCORBIC ACID 500 MG TAB PO SCH ×2 (10:05→21:21)
[2020-10-10] MEDS: CLOPIDOGREL BISULFATE 75 MG TAB PO SCH (10:05)
[2020-10-10] MEDS: cefTRIAXone 1GM/50ML D5W 50 ML IV SCH (10:06)
[2020-10-10] MEDS ORDERED: IOHEXOL 350 MG/ML 100ML IJ ONE (10:29)
[2020-10-10] MEDS ORDERED: TICAGRELOR 90 MG TAB ONE (10:30)
[2020-10-10] MEDS ORDERED: ASPirin 325 MG TAB ONE (10:30)
[2020-10-10] MEDS: INSULIN 70/30 1unit/0.01ml Susp (100units/ml) SC SCH ×2 (10:30→17:52)
--- NOTE | 2020-10-10 11:28 | NUR ---
PICC line placement Patient/Patient significant other educated on need for PICC line placement. All risks and benefits explained and all questions and concerns addressed prior to procedure. Noted past medical history and allergies with no contraindications. INR and Plt counts within acceptable range. 4 fr PICC line inserted via RIGHT BASILIC vein using [employer] US and Tip Location System. Sterile technique with maximum barrier precautions utilized. Blood return obtained from THE SINGLE lumens and each flushed easily with NS using proper technique. PICC secured with Stat-lock; biodisc and occlusive dressing applied. Stat portable chest x-ray obtained for PICC tip placement. *Baseline Arm Circumference 32 CM INTERNAL LENGTH 41 CM EXTERNAL 0 CM PICC lot # [id number]
[2020-10-10] MEDS ORDERED: LIDOCAINE 1% (LOCAL ANESTH.) PF 5ml SDV ID ONE (11:30)
[2020-10-10] MEDS: hydrALAZINE HCL 20 MG/ML VL IV PRN (12:32)
--- NOTE | 2020-10-10 14:20 | NUR ---
WOUNDS DRESSING APPLIED PER M.D. ORDERS.
--- NOTE | 2020-10-10 14:28 | NUR ---
Assessment Patient is a 79 year old male, who is alert and oriented. Patient cognitive abilities are intact. Patient states prior being admitting to [facility], he could do all ADL's and ambulate independently. Patient has history of diabetes. Patient stated that he lives with his Janice ([phone]), patient stated that he is retired and receives social security benefits as income. Patient states that he has plans to return home post discharge and his stepson will provide transportation. Patient was receptive to receive Advance Directive forms. Discharge planning: Patient will return home and follow up with his PCP. Patient has supplies to resume diabetic home care. SW provided Advance Directive forms to patient. Patient doesn't have additional post discharge needs to identify at this moment.
[2020-10-10] MEDS: ATORVASTATIN 20 MG TAB PO SCH (21:20)
[2020-10-10 22:00] VITALS: BP 170/82
[2020-10-11] MEDS: hydrALAZINE HCL 20 MG/ML VL IV PRN ×2 (04:29→18:18)
[2020-10-11 05:00] VITALS: BP 205/109
[2020-10-11] MEDS: hydrALAZINE HCL 25 MG TAB PO SCH ×3 (05:25→23:07)
[2020-10-11] MEDS: CLINDAMYCIN 300MG IV 50 ML IV SCH ×3 (05:25→22:30)
[2020-10-11] MEDS: ACCU-CHEK COMFORT CURVE STRIP VI SCH ×4 (05:31→22:00)
[2020-10-11] MEDS: InsuLIN REG 1unit/0.01ml Soln (100units/ml) SC SCH ×4 (05:31→22:00)
[2020-10-11] MEDS: SODIUM CHLOR 0.9% PF (SALINE LOCK) 10ML VIAL/SYR IV SCH ×5 (05:31→22:00)
--- NOTE | 2020-10-11 07:15 | NUR ---
ASSUMED CARE OF PATIENT AWAKE ALERT AND ORIENTED. RESPIRATIONS EVEN AND UNLABORED. POC REVIEWED WITH PATENT. PATIENT VERBALIZED UNDERSTANDING. HOB ELEVATED AT LEAST 30 DEGREES, CALL LIGHT IS WITHIN REACH, SIDE RAILS UP X 2, BED LOCKED IN LOWEST POSITION.
[2020-10-11] MEDS: INSULIN 70/30 1unit/0.01ml Susp (100units/ml) SC SCH ×2 (08:00→17:59)
--- NOTE | 2020-10-11 08:37 | NUR ---
Blood sugar check at 0800. Glucose value at 106. Humulin 50 units to be held due to the fact that pt is npo for procedure today. Will notify md when md rounds.
[2020-10-11 09:00] VITALS: BP 172/98
[2020-10-11] MEDS: cefTRIAXone 1GM/50ML D5W 50 ML IV SCH (09:00)
--- NOTE | 2020-10-11 09:45 | NUR ---
patient taken down to or for procedure
[2020-10-11] MEDS ORDERED: ROPIVACAINE 0.5% (5MG/ML) 20ML AMPULE IJ ONE (09:47)
[2020-10-11] MEDS ORDERED: ceFAZolin 1GM VL ONE (09:50)
[2020-10-11] MEDS ORDERED: ceFAZolin 1GM/50ML 50 ML IV ONE (09:59)
[2020-10-11] MEDS: ASCORBIC ACID 500 MG TAB PO SCH ×2 (10:00→23:05)
[2020-10-11] MEDS: MULTIPLE VITAMIN TAB PO SCH (10:00)
[2020-10-11] MEDS: FAMOTIDINE 20 MG TAB PO SCH ×2 (10:00→23:06)
[2020-10-11] MEDS ORDERED: NALOXONE HCL 0.4 MG/ML VIAL IV PRN (10:00)
[2020-10-11] MEDS: CLOPIDOGREL BISULFATE 75 MG TAB PO SCH (10:00)
[2020-10-11] MEDS: amLODIPine BESYLATE 5 MG TAB PO SCH (10:00)
[2020-10-11] MEDS: ASPirin 81 mg TAB PO SCH (10:00)
[2020-10-11] MEDS ORDERED: ONDANSETRON HCL 4 MG/2 ML VIAL IV PRN (10:00)
[2020-10-11] MEDS: ZINC SULFATE 220mg CAP or TAB PO SCH (10:00)
[2020-10-11] MEDS ORDERED: HYDROmorphone HCL 2 MG/ML VL IV PRN ×2 (10:00)
[2020-10-11] MEDS ORDERED: ACCU-CHEK COMFORT CURVE STRIP VI ONE (10:00)
[2020-10-11] MEDS ORDERED: MIDAZOLAM HCL 1MG/1ML-2 ML VIAL ONE (10:06)
[2020-10-11] MEDS ORDERED: diphenhdrAMINE HCL 50 MG/1 ML VL ONE (10:06)
[2020-10-11] MEDS ORDERED: METOCLOPRAMIDE HCL 5MG/ml INJ 2ml VIAL ONE (10:06)
[2020-10-11] MEDS ORDERED: GLYCOPYRROLATE 0.2 MG/ML 1ML VIAL ONE (10:06)
[2020-10-11] MEDS ORDERED: LIDOCAINE 1% (LOCAL ANESTH.) PF 5ml SDV ONE (10:07)
[2020-10-11] MEDS ORDERED: PROPOFOL 10 MG/ML 20 ML IV ONE (10:07)
[2020-10-11] MEDS ORDERED: fentaNYL CITRATE 100 MCG/2 ML VL ONE (10:07)
--- NOTE | 2020-10-11 11:50 | NUR ---
PATEINT RETURNED TO ROOM. NO DISTRESS NOTED AT THIS TIME. CONTINUE CARE.
[2020-10-11 13:00] VITALS: BP 195/106
--- NOTE | 2020-10-11 14:32 | NUR ---
MUSEUM EXHIBIT TECHNICIAN CALLED RN TO ROOM TO NOTIFY OF DRAINAGE AT DRESSING SITE. REENFORCED SITE WITH KERRAFIQ. MD DR THOMPSON INFORMED. ALSO INFORMED DR THOMPSON OF MINIMAL DRAINAGE OF JARVIS DRAIN. NO NEW ORDERS AT THIS TIME.
--- NOTE | 2020-10-11 17:47 | NUR ---
10 ML OF SEROUS SANGUINOUS DARK RED FLUID DRAINED FROM AJRVIS DRAIN.
[2020-10-11] MEDS: DOCUSATE SOD 100 MG CAP PO PRN (18:18)
--- NOTE | 2020-10-11 19:31 | NUR ---
ENDORSED CARE TO NOC SHIFT RN
[2020-10-11] MEDS: ATORVASTATIN 20 MG TAB PO SCH (23:05)
--- NOTE | 2020-10-12 00:10 | NUR ---
Returned to pt's room. PICC line from [facility] found on floor attached to IV. Assessed site, no bleeding or bruising. Pressure dressing applied. Catheter tip intact. Pt has no complaints, found standing up. Educated pt to lay down elevate extremity and to no put weight on surgical site.
[2020-10-12] MEDS: DOCUSATE SOD 100 MG CAP PO PRN ×2 (01:08→17:14)
[2020-10-12] MEDS: cloNIDine HCL 0.1 MG TAB PO PRN ×2 (01:10→06:50)
--- NOTE | 2020-10-12 01:30 | NUR ---
Communicated with Charge nurse Ana Maria, regarding possible sitter. Will move to bed 277-A
--- NOTE | 2020-10-12 01:45 | NUR ---
Bed alarm was set off, pt is sitting on bed and opened JARVIS drain. Pt verbalized he wants to remove the bandage and drain. Reinforced bandage, and educated pt. Cleaned pt and moved to room 277-A
[2020-10-12 05:00] VITALS: BP 191/80
[2020-10-12] MEDS: ACETAMINOPHEN 325 MG TAB PO PRN (05:27)
[2020-10-12] MEDS: hydrALAZINE HCL 25 MG TAB PO SCH ×3 (05:27→22:20)
[2020-10-12] MEDS: CLINDAMYCIN 300MG IV 50 ML IV SCH ×3 (05:45→22:21)
[2020-10-12] MEDS: SODIUM CHLOR 0.9% PF (SALINE LOCK) 10ML VIAL/SYR IV SCH ×5 (06:00→22:27)
[2020-10-12] MEDS: InsuLIN REG 1unit/0.01ml Soln (100units/ml) SC SCH ×4 (06:00→22:17)
[2020-10-12] MEDS: ACCU-CHEK COMFORT CURVE STRIP VI SCH ×4 (06:01→22:21)
--- NOTE | 2020-10-12 06:24 | NUR ---
Removed total of 20ML of Serous Sanguinous Dark red fluid from JARVIS drain.
--- NOTE | 2020-10-12 07:15 | NUR ---
ASSUMED CARE OF PATENT RESTING IN BED WITH EYES CLOSED. RESPIRATIONS EVEN AND UNLABORED. SITTER AT BEDSIDE. BED LOCKED IN LOWEST POSITION, CALL LIGHT WITHIN REACH, HOB ELEVATED AT LEAST 30 DEGREES AND SIDE RAILS UP X 2.
[2020-10-12 08:07] LABS: Basophils # (auto) 0 10 ^3/uL (0-0.2); Basophils % (auto) 0.6 % (0.0-2.0); Eosinophils # (auto) 0.1 10 ^3/uL (0-0.8); Hematocrit 33.8 % (41.0-53.0); Lymphocytes # (auto) 0.8 10 ^3/uL (0.4-5.4); Lymphocytes % (auto) 15.2 % (10.0-50.0); Mean Corpuscular Hemoglobin 28.4 pg (28.0-32.0); Mean Corpuscular Hgb Conc. 32.6 g/dL (32.0-36.0); Mean Corpuscular Volume 87.2 fL (80.0-100.0); Monocytes # (auto) 0.9 10 ^3/uL (0-1.3); Monocytes % (auto) 17.1 % (0.0-12.0); Neutrophils # (auto) 3.6 10 ^3/uL (1.6-8.6); Neutrophils % (auto) 66.1 % (37.0-80.0); Platelet Count (auto) 128 10^3/uL (140-450); Red Blood Cells 3.88 10^6/uL (4.5-5.90); White Blood Cell 5.5 10^3/uL (4.4-10.8)
[2020-10-12] MEDS: INSULIN 70/30 1unit/0.01ml Susp (100units/ml) SC SCH ×2 (08:09→17:30)
[2020-10-12 08:35] LABS: Calcium 8.4 mg/dL (8.5-10.1); Magnesium 2.5 mg/dL (1.6-2.6); Potassium 4.1 mmol/L (3.5-5.1)
[2020-10-12 08:37] LABS: BUN/Creatinine Ratio 16.6
[2020-10-12 09:00] VITALS: BP 173/79
[2020-10-12] MEDS: ZINC SULFATE 220mg CAP or TAB PO SCH (09:10)
[2020-10-12] MEDS: ASPirin 81 mg TAB PO SCH (09:10)
[2020-10-12] MEDS: cefTRIAXone 1GM/50ML D5W 50 ML IV SCH (09:10)
[2020-10-12] MEDS: amLODIPine BESYLATE 5 MG TAB PO SCH (09:11)
[2020-10-12] MEDS: FAMOTIDINE 20 MG TAB PO SCH ×2 (09:11→22:20)
[2020-10-12] MEDS: MULTIPLE VITAMIN TAB PO SCH (09:11)
[2020-10-12] MEDS: ASCORBIC ACID 500 MG TAB PO SCH ×2 (09:12→22:21)
[2020-10-12] MEDS: CLOPIDOGREL BISULFATE 75 MG TAB PO SCH (09:12)
--- NOTE | 2020-10-12 09:30 | NUR ---
DR BISHOP PAGED REGARDING PICC LINE ORDER. AWAITING CALL BACK. CONTINUE CARE.
--- NOTE | 2020-10-12 10:41 | NUR ---
DR. BISHOP MADE AWARE THAT PATIENT DOES NOT HAVE A PICC LINE AT THIS TIME, HOWEVER THE PATIENT DOES HAVE IV ACCESS AT THIS TIME. NO NEW ORDERS RECEIVED. CONTINUE CARE.
--- NOTE | 2020-10-12 11:22 | NUR ---
WOUND CARE NOTE: Wound care in to see patient for reevaluation of L foot great toe wound. Patient is resting in bed in Rm. 277A. Patient is awake, alert and follow simple direction. He's in no stated pain at this time and he appears to be in no pain using Grace Tovar Fcaes Pain Scale. He's self turning and repositioning. His Rad score is 21. Patient is one day s/p amputation of L Great toe and resection of Lt 1st metatarsal head by Dr. Ramirez. Patient's left foot dressing getting loose and JARVIS drain with serosanguineous drainage is hanging. Reinforce patient's L foot wound dressing by wrapping with one large Kerlix, secured with tape. JARVIS drain secured with CoBan so it is not hanging and touching the floor. No other wound noted. Nurse's aide at bedside. Discussed with patient's nurse, MARCOS Moeller, patient's skin/wound plan of care. RECOMMENDATION: Discontinue previous left foot wound dressing orders as patient is now post op. Follow up with MD/surgeon for post op wound dressing change order, continue with skin/wound plan of care, continue monitoring by wound care while patient is hospitalized. Addendum: 10/12/20 at 1428 by Alma Kaufman RN Amended: Links added.
--- NOTE | 2020-10-12 14:28 | NUR ---
Nutrition Followup Notes Wt: 98.5 Pt was sleeping when rounded this morning. per records pt with osteomyelitis s/p amputation per records. pt is currently on CCHO 45 gm/meal diet with adequate Po of 100% x 2 per RN doc Est energy needs 3007-0901 kcal (18-20 kcal/kg BW 97.5kg) Est protein needs 70-91g (1-1.3g/kg IBW 70kg) Will monitor and reassess prn. LABS: BUN 51 H CREAT 3.07 H GLU 195 H CA 8.4 L GI: Pt had 3 BM 10/10 per RN doc. BS: 21 low risk wounds. Refer to wound assessment report for further details. PES: Obesity aeb pt with a BMI of 32.7kg/m2 r/t caloric intake in excess of needs Altered nutrition related labs aeb pt with elevated RFTs, hyperglycemia, hypoalb r/t current and chronic medical condition Comments: Will continue to monitor PO status, skin status, pertinent labs and weight trends. Will f/u in 3-5 days Rec: 1) refer pt to [facility] on Dc. 2) Continue current plan of care. 3) Consider adding MVI and Vitamin C 500 mg BID for wound healing
[2020-10-12 17:00] VITALS: BP 164/87
[2020-10-12] MEDS: hydrALAZINE HCL 20 MG/ML VL IV PRN (17:14)
--- NOTE | 2020-10-12 18:35 | NUR ---
Removed total of 10ML of Serous Sanguinous Dark red fluid from JARVIS drain.
--- NOTE | 2020-10-12 19:20 | NUR ---
ENDORSED CARE TO NOC SHIFT RN
[2020-10-12 22:00] VITALS: BP 165/81
[2020-10-12] MEDS: ATORVASTATIN 20 MG TAB PO SCH (22:19)
[2020-10-13] MEDS: DOCUSATE SOD 100 MG CAP PO PRN (00:16)
[2020-10-13] MEDS: cloNIDine HCL 0.1 MG TAB PO PRN ×2 (00:16→02:17)
[2020-10-13 05:00] VITALS: BP 161/81
--- NOTE | 2020-10-13 05:00 | NUR ---
Pt reminded throughout night to lay in bed. Pt able to verbalize understanding of JARVIS drain and medications
[2020-10-13 05:20] LABS: Hematocrit 34.5 % (41.0-53.0); Hemoglobin 11.2 g/dL (13.5-17.5); Mean Corpuscular Hemoglobin 28.3 pg (28.0-32.0); Mean Corpuscular Hgb Conc. 32.4 g/dL (32.0-36.0); Mean Corpuscular Volume 87.3 fL (80.0-100.0); Platelet Count (auto) 134 10^3/uL (140-450); Red Blood Cells 3.95 10^6/uL (4.5-5.90); Red Cell Distribution Width 14.9 % (11.8-14.3); White Blood Cell 3.9 10^3/uL (4.4-10.8)
[2020-10-13 05:26] LABS: Band Neutrophils % (manual) 0; Basophils % (manual) 0 (0.0-2.0); Blast Cells 0; Metamyelocytes % 0; Myelocytes % 0; Promyelocytes % 0; Reactive Lymphocytes 0
[2020-10-13] MEDS: CLINDAMYCIN 300MG IV 50 ML IV SCH ×3 (05:29→22:01)
[2020-10-13] MEDS: hydrALAZINE HCL 25 MG TAB PO SCH ×3 (05:30→22:02)
[2020-10-13 05:48] LABS: Potassium 3.8 mmol/L (3.5-5.1)
[2020-10-13 05:54] LABS: BUN/Creatinine Ratio 17.1; Calcium 8.6 mg/dL (8.5-10.1)
[2020-10-13] MEDS: SODIUM CHLOR 0.9% PF (SALINE LOCK) 10ML VIAL/SYR IV SCH ×5 (06:00→22:22)
[2020-10-13] MEDS: InsuLIN REG 1unit/0.01ml Soln (100units/ml) SC SCH ×4 (06:29→22:00)
--- NOTE | 2020-10-13 06:48 | NUR ---
Removed 10ML of serous sanguinous dark red fluid from JARVIS drain
--- NOTE | 2020-10-13 07:34 | NUR ---
ASSUMED CARE OF PATENT RESTING IN BED WITH EYES CLOSED. RESPIRATIONS EVEN AND UNLABORED. BED LOCKED IN LOWEST POSITION, CALL LIGHT WITHIN REACH, HOB ELEVATED AT LEAST 30 DEGREES AND SIDE RAILS UP X 2.
[2020-10-13] MEDS: ACCU-CHEK COMFORT CURVE STRIP VI SCH ×4 (07:59→22:03)
[2020-10-13] MEDS: INSULIN 70/30 1unit/0.01ml Susp (100units/ml) SC SCH ×2 (08:00→17:56)
[2020-10-13] MEDS: cefTRIAXone 1GM/50ML D5W 50 ML IV SCH (08:44)
[2020-10-13 09:00] VITALS: BP 167/97
[2020-10-13] MEDS: ZINC SULFATE 220mg CAP or TAB PO SCH (09:09)
[2020-10-13] MEDS: MULTIPLE VITAMIN TAB PO SCH (09:09)
[2020-10-13] MEDS: amLODIPine BESYLATE 5 MG TAB PO SCH (09:12)
[2020-10-13] MEDS: FAMOTIDINE 20 MG TAB PO SCH ×2 (09:12→22:02)
[2020-10-13] MEDS: ASCORBIC ACID 500 MG TAB PO SCH ×2 (09:12→22:02)
--- NOTE | 2020-10-13 09:20 | NUR ---
DR GARRETT AT BEDSIDE. ORDERS RECEIVED TO HOLD ASPIRIN AT THIS TIME. DR GARRETT VERBALIZED THAT HE WILL RESUME PLAVIX AND ASPIRIN WHEN THE PATIENT GOES HOME.
[2020-10-13 12:43] LABS: Eosinophils % (manual) 4 (0-7); Lymphocytes % (manual) 16 (10.0-50.0); Monocytes % (manual) 15 (0-12)
[2020-10-13 13:00] VITALS: BP 174/74
[2020-10-13] MEDS: hydrALAZINE HCL 20 MG/ML VL IV PRN (16:49)
[2020-10-13 17:00] VITALS: BP 196/89
--- NOTE | 2020-10-13 18:09 | NUR ---
Removed 10ML of serous sanguinous dark red fluid from JARVIS drain
--- NOTE | 2020-10-13 19:30 | NUR ---
ENDORSED CARE TO NOC SHIFT RN
[2020-10-13 22:00] VITALS: BP 150/75
--- NOTE | 2020-10-13 22:00 | NUR ---
TEMP of 101.3 Acetaminophen and cooling measures applied, room temp also decreased. Pt is comfortable in bed, and heavy blankets removed. Will reassess.
[2020-10-13] MEDS: ATORVASTATIN 20 MG TAB PO SCH (22:02)
[2020-10-13] MEDS: ACETAMINOPHEN 325 MG TAB PO PRN (22:03)
--- NOTE | 2020-10-13 23:03 | NUR ---
TEMP 98.6 Pt temp is 98.6. Pt is comfortable sleeping in bed. No SOB, no change of condition. Will continue to monitor pt for any changes. Pt maintaining baseline orientation.
[2020-10-14 05:00] VITALS: BP 193/106
[2020-10-14] MEDS: hydrALAZINE HCL 20 MG/ML VL IV PRN ×2 (05:09→10:03)
[2020-10-14] MEDS: SODIUM CHLOR 0.9% PF (SALINE LOCK) 10ML VIAL/SYR IV SCH ×3 (06:05→14:00)
[2020-10-14] MEDS: CLINDAMYCIN 300MG IV 50 ML IV SCH ×2 (06:05→14:13)
[2020-10-14] MEDS: InsuLIN REG 1unit/0.01ml Soln (100units/ml) SC SCH ×2 (06:06→11:32)
[2020-10-14] MEDS: hydrALAZINE HCL 25 MG TAB PO SCH ×2 (06:06→14:16)
--- NOTE | 2020-10-14 06:28 | NUR ---
Removed 10ML of red serous sanguinous fluid from JARVIS Drain
[2020-10-14] MEDS: ACCU-CHEK COMFORT CURVE STRIP VI SCH ×2 (07:00→11:30)
--- NOTE | 2020-10-14 07:24 | NUR ---
Care endorsed to AM RN. PT is laying in bed, lowest position, with side rails up 2x. Bed alarm on. Fall precautions in place. Saline lock. Informed AM RN regarding Blood pressure control and last administration of hydralazine scheduled. Blood pressure control throughout the day with PRN clonidine or ivp hydralazine. Pt is also a fall risk, with fall preventions in place. Educated pt regarding keeping weight off of surgical site.
[2020-10-14] MEDS: INSULIN 70/30 1unit/0.01ml Susp (100units/ml) SC SCH (07:41)
--- NOTE | 2020-10-14 08:00 | NUR ---
Opening Shift Note Assumed care of patient, awake and alert. No S/S of distress/SOB or pain. Bed in lowest position side rails up x2 and call lgiht within reach. Right forearm 20 G IV dry, patent, and intact with no signs of redness or swelling. Instructed on POC and to call for assist PRN, will continue to monitor for changes Q1hr and PRN.
[2020-10-14] MEDS: cefTRIAXone 1GM/50ML D5W 50 ML IV SCH (08:37)
[2020-10-14 09:00] VITALS: BP 175/85
[2020-10-14] MEDS: MULTIPLE VITAMIN TAB PO SCH (10:03)
[2020-10-14] MEDS: ASCORBIC ACID 500 MG TAB PO SCH (10:03)
[2020-10-14] MEDS: ZINC SULFATE 220mg CAP or TAB PO SCH (10:04)
[2020-10-14] MEDS: amLODIPine BESYLATE 5 MG TAB PO SCH (10:04)
[2020-10-14] MEDS: FAMOTIDINE 20 MG TAB PO SCH (10:04)
[2020-10-14] MEDS: cloNIDine HCL 0.1 MG TAB PO PRN (12:03)
[2020-10-14 13:22] VITALS: BP 200/85
[2020-10-14] MEDS ORDERED: HCTZ 25 MG TAB PO SCH (13:30)
--- NOTE | 2020-10-14 13:40 | NUR ---
Received a call from Jennifer DEVRIES at [facility] [phone], Stated that [facility] will be seeing the patient [phone]. Stated to ask the nurse to give the patient some supplies for a few days until they see the patient.
--- NOTE | 2020-10-14 16:00 | NUR ---
PATIENT REFUSED WOUND CARE PHOTOS UPON DISCHARGE.
--- NOTE | 2020-10-14 16:18 | NUR ---
DISCHARGE HOME Discharge instructions given as ordered. Encourage to follow up with PMD AND DR. THOMPSON as instructed. All questions and concerns addressed. Patient verbalized understanding. Medication reconciliation form completed and copy given to patient. IV removed with catheter intact, pressure dressing applied. Telemetry unit returned to ICU. Patient provided with wound care dressing change needs per MD orders. Patient taken to vehicle via wheelchair with all personal belongings, accompanied by staff. No distress noted at time of departure.
[2020-10-14] MEDS ORDERED: CARVEDILOL 3.125 MG TAB PO SCH (22:00)
--- NOTE | 2020-10-15 11:02 | NUR ---
Family member [phone] called me and stated that [facility] pharmacy would not fill prescription. Called prescription in to [facility] pharmacy on [address] for Levaquin 250 mg po daily X 21 days. Pharmacy was unable to fill RX. taken in by family due to not having MD's name. Information given and family notified that RX will be ready for them to peanut picker.
== END 2020-10-14 16:18 | disposition home health service (06) | DRG 271 ==
LOC: ER 17:02 → TELE 22:23 → TELE-WESTW 23:59
PROVIDERS: ADMIT Nurse Practitioner Family; ATTEND Internal Medicine Geriatric Medicine
PROC: 04CU3ZZ Extirpation of Matter from Left Peroneal Artery, Percutaneous Approach (ICD-10-PCS; principal; 2020-10-10)
PROC: 047U3ZZ Dilation of Left Peroneal Artery, Percutaneous Approach (ICD-10-PCS; 2020-10-10)
PROC: 04CN3ZZ Extirpation of Matter from Left Popliteal Artery, Percutaneous Approach (ICD-10-PCS; 2020-10-10)
PROC: 047N3ZZ Dilation of Left Popliteal Artery, Percutaneous Approach (ICD-10-PCS; 2020-10-10)
PROC: B41GYZZ Fluoroscopy of Left Lower Extremity Arteries using Other Contrast (ICD-10-PCS; 2020-10-10)
PROC: 02HV33Z Insertion of Infusion Device into Superior Vena Cava, Percutaneous Approach (ICD-10-PCS; 2020-10-10)
PROC: 0Y6Q0Z0 Detachment at Left 1st Toe, Complete, Open Approach (ICD-10-PCS; 2020-10-11)
PROC: 0QTP0ZZ Resection of Left Metatarsal, Open Approach (ICD-10-PCS; 2020-10-11)
DX: E11.52 Type 2 diabetes mellitus with diabetic peripheral angiopathy with gangrene (principal); L03.116 Cellulitis of left lower limb; I16.1 Hypertensive emergency; M86.8X7 Other osteomyelitis, ankle and foot; I70.92 Chronic total occlusion of artery of the extremities; I96 Gangrene, not elsewhere classified; E11.69 Type 2 diabetes mellitus with other specified complication; E11.621 Type 2 diabetes mellitus with foot ulcer; L97.521 Non-pressure chronic ulcer of other part of left foot limited to breakdown of skin; E78.5 Hyperlipidemia, unspecified; E11.22 Type 2 diabetes mellitus with diabetic chronic kidney disease; E11.65 Type 2 diabetes mellitus with hyperglycemia; N18.30 Chronic kidney disease, stage 3 unspecified; M20.5X2 Other deformities of toe(s) (acquired), left foot; Z20.828 Contact with and (suspected) exposure to other viral communicable diseases; I12.9 Hypertensive chronic kidney disease with stage 1 through stage 4 chronic kidney disease, or unspecified chronic kidney disease; M1A.9XX1 Chronic gout, unspecified, with tophus (tophi); N40.0 Benign prostatic hyperplasia without lower urinary tract symptoms; Z79.4 Long term (current) use of insulin; Z82.49 Family history of ischemic heart disease and other diseases of the circulatory system
CPT/HCPCS: 36415; 36569; 71045; 73700; 73718; 76775; 80048; 80053; 80061; 80307; 81001; 82306; 82570; 82962; 83036; 83605; 83735; 83970; 84100; 84156; 84300; 84443; 85007; 85025; 85027; 85610; 85730; 87040; 87070; 87075; 87076; 87077; 87186; 87205; 93005; 93926; 96365; 96375; 99152; 99153; C1724; G0378; J0690; J0696; J1815; J2250; J2543; J2704; J3490; Q9967

== ENCOUNTER 2020-10-20 16:48 | Inpatient (IN) | payer OTHER ==
[~2020-10-20] VITALS: Ht 167.6 cm; Wt 88.5 kg
[~2020-10-20 16:48] MED LIST: ATO40T PO; CARV6.2551 PO; CLON0.2D6 PO; DULO60CA PO; GABA-339 PO; INS7030I SC; NIFE90TA49 PO; TAMS1CAP25 PO
[2020-10-20 20:38] LABS: INR 1.12 (0.9-1.15); Partial Thromboplastin Time 31.4 sec (23.0-31.2)
[2020-10-20 20:41] LABS: Basophils # (auto) 0 10 ^3/uL (0-0.2); Basophils % (auto) 0.3 % (0.0-2.0); Eosinophils # (auto) 0 10 ^3/uL (0-0.8); Hematocrit 32.5 % (41.0-53.0); Hemoglobin 10.9 g/dL (13.5-17.5); Lymphocytes # (auto) 0.6 10 ^3/uL (0.4-5.4); Lymphocytes % (auto) 10.4 % (10.0-50.0); Mean Corpuscular Hemoglobin 28.7 pg (28.0-32.0); Mean Corpuscular Hgb Conc. 33.4 g/dL (32.0-36.0); Monocytes # (auto) 0.5 10 ^3/uL (0-1.3); Monocytes % (auto) 7.7 % (0.0-12.0); Neutrophils # (auto) 4.8 10 ^3/uL (1.6-8.6); Neutrophils % (auto) 81.6 % (37.0-80.0); Platelet Count (auto) 190 10^3/uL (140-450); Red Blood Cells 3.78 10^6/uL (4.5-5.90); Red Cell Distribution Width 14.6 % (11.8-14.3); White Blood Cell 5.9 10^3/uL (4.4-10.8)
[2020-10-20] MEDS ORDERED: levoFLOXacin 750MG 150 ML IV ONE (21:00)
[2020-10-20] MEDS ORDERED: SODIUM CHLORIDE 0.9% 1,000 ML IVB STA (21:15)
[2020-10-20 21:21] LABS: Albumin 2.5 g/dL (3.4-5.0); BUN/Creatinine Ratio 21.2; Bilirubin, Total 0.4 mg/dL (0.2-1.0); Calcium 8.5 mg/dL (8.5-10.1); Potassium 4.5 mmol/L (3.5-5.1); Total Protein 7.2 g/dL (6.4-8.2)
[2020-10-20 23:35] LABS: Potassium 4.4 mmol/L (3.5-5.1)
[2020-10-20 23:48] LABS: Albumin 2.5 g/dL (3.4-5.0); BUN/Creatinine Ratio 20.5; Bilirubin, Total 0.5 mg/dL (0.2-1.0); Calcium 8.1 mg/dL (8.5-10.1); Total Protein 7.2 g/dL (6.4-8.2)
[2020-10-21] MEDS ORDERED: NITROGLYCERIN 0.4 MG SL TAB SL PRN
[2020-10-21] MEDS ORDERED: ONDANSETRON HCL 4 MG/2 ML VIAL IV PRN
[2020-10-21] MEDS ORDERED: ACETAMINOPHEN 500 MG TAB PO PRN
[2020-10-21] MEDS ORDERED: DOCUSATE SOD 100 MG CAP PO PRN
[2020-10-21] MEDS ORDERED: MORPHINE SULF INJ 2 MG/ML SYRINGE 1ML IV PRN
[2020-10-21] MEDS: SODIUM CHLORIDE 0.9% 1,000 ML IV SCH ×2 (02:40→17:07)
[2020-10-21] MEDS: ALBUTEROL SULF HFA 90MCG INH 200DOSE IN SCH ×3 (06:00→22:00)
[2020-10-21 08:29] LABS: Basophils # (auto) 0 10 ^3/uL (0-0.2); Basophils % (auto) 0.5 % (0.0-2.0); Eosinophils # (auto) 0 10 ^3/uL (0-0.8); Hemoglobin 11.1 g/dL (13.5-17.5); Lymphocytes # (auto) 0.4 10 ^3/uL (0.4-5.4); Lymphocytes % (auto) 5.8 % (10.0-50.0); Mean Corpuscular Hemoglobin 27.6 pg (28.0-32.0); Mean Corpuscular Hgb Conc. 31.7 g/dL (32.0-36.0); Mean Corpuscular Volume 86.8 fL (80.0-100.0); Monocytes # (auto) 0.4 10 ^3/uL (0-1.3); Monocytes % (auto) 5.7 % (0.0-12.0); Neutrophils # (auto) 5.8 10 ^3/uL (1.6-8.6); Nucleated Red Blood Cells % 0.1 %; Platelet Count (auto) 212 10^3/uL (140-450); Red Blood Cells 4.03 10^6/uL (4.5-5.90); Red Cell Distribution Width 15.4 % (11.8-14.3); White Blood Cell 6.6 10^3/uL (4.4-10.8)
[2020-10-21 08:49] LABS: Albumin 2.5 g/dL (3.4-5.0); Calcium 8.2 mg/dL (8.5-10.1); Potassium 4.5 mmol/L (3.5-5.1)
[2020-10-21 09:01] LABS: BUN/Creatinine Ratio 23.1; Bilirubin, Total 0.5 mg/dL (0.2-1.0); Total Protein 7.6 g/dL (6.4-8.2)
[2020-10-21] MEDS: ZINC SULFATE 220mg CAP or TAB PO SCH (09:33)
[2020-10-21] MEDS: ENOXAPARIN SOD 30 MG/0.3 ML SYRINGE SC SCH (09:33)
[2020-10-21] MEDS: ASCORBIC ACID 1,000 MG TAB PO SCH (09:33)
[2020-10-21] MEDS: DOXYCYCLINE 100 MG TAB/CAP PO SCH ×2 (09:33→22:36)
[2020-10-21 09:56] VITALS: BP 115/56
[2020-10-21] MEDS ORDERED: DexAMETHasone 4 MG TAB PO ONE (14:00)
[2020-10-22 06:16] LABS: Basophils # (auto) 0 10 ^3/uL (0-0.2); Basophils % (auto) 0.4 % (0.0-2.0); Eosinophils # (auto) 0 10 ^3/uL (0-0.8); Hematocrit 34.7 % (41.0-53.0); Hemoglobin 11.1 g/dL (13.5-17.5); Lymphocytes # (auto) 0.2 10 ^3/uL (0.4-5.4); Lymphocytes % (auto) 3.2 % (10.0-50.0); Mean Corpuscular Hemoglobin 27.8 pg (28.0-32.0); Mean Corpuscular Hgb Conc. 32.1 g/dL (32.0-36.0); Mean Corpuscular Volume 86.6 fL (80.0-100.0); Monocytes # (auto) 0.2 10 ^3/uL (0-1.3); Monocytes % (auto) 3.2 % (0.0-12.0); Neutrophils # (auto) 6.8 10 ^3/uL (1.6-8.6); Neutrophils % (auto) 93.2 % (37.0-80.0); Platelet Count (auto) 230 10^3/uL (140-450); Red Cell Distribution Width 15.1 % (11.8-14.3); White Blood Cell 7.3 10^3/uL (4.4-10.8)
[2020-10-22] MEDS: ALBUTEROL SULF HFA 90MCG INH 200DOSE IN SCH ×3 (06:20→21:11)
[2020-10-22 06:52] LABS: BUN/Creatinine Ratio 27.9; Calcium 8.5 mg/dL (8.5-10.1); Magnesium 3.1 mg/dL (1.6-2.6)
[2020-10-22] MEDS: ZINC SULFATE 220mg CAP or TAB PO SCH (11:11)
[2020-10-22] MEDS: SODIUM CHLORIDE 0.9% 1,000 ML IV SCH (11:11)
[2020-10-22] MEDS: DOXYCYCLINE 100 MG TAB/CAP PO SCH ×2 (11:12→22:56)
[2020-10-22] MEDS: ASCORBIC ACID 1,000 MG TAB PO SCH (11:12)
[2020-10-22] MEDS: ENOXAPARIN SOD 30 MG/0.3 ML SYRINGE SC SCH (11:12)
[2020-10-22] MEDS: DexAMETHasone 4 MG TAB PO SCH (11:12)
[2020-10-22 14:39] LABS: Creatinine, Urine 59 mg/dL (30.0-125.0); Sodium Urine 52 mmol/L (40-220)
[2020-10-22 15:52] LABS: Urine Amorphous Crystal FEW /hpf (None Seen); Urine Bacteria FEW /hpf (None Seen); Urine Blood 2+ /uL (Negative); Urine Hyaline Cast FEW /lpf (0 - 2); Urine Specific Gravity 1.013 (1.001-1.035); Urine WBC 1 /hpf (0 - 3)
[2020-10-22] MEDS ORDERED: hydrALAZINE HCL 20 MG/ML VL ONE (21:19)
--- NOTE | 2020-10-22 21:19 | NUR ---
PATIENT BROUGHT TO UNIT VIA WHEELCHAIR PATIENT AOX2. PATIENT CANNOT RECALL HIS PAST MEDICAL HISTORY ( POOR HISTORIAN). PATIENT ON 15L NON-REBREATHER W/ SATURATION AT 91%. PATIENT BED LOCKED IN LOWEST POSITION AND HOB AT 30 DEGREES. PATIENT CALL LIGHT IS WITHIN REACH. WILL CONTINUE TO MONITOR.
[2020-10-22] MEDS ORDERED: hydrALAZINE HCL 20 MG/ML VL IV ONE (21:45)
[2020-10-22] MEDS ORDERED: DEXTROSE (50%) 50ML SYRG IV PRN (21:45)
[2020-10-22] MEDS ORDERED: PATIENTS OWN MEDICATION (Carvedilol 6.25 MG) PO SCH (22:00)
[2020-10-22] MEDS ORDERED: PATIENTS OWN MEDICATION (Carvedilol 1 TAB) PO SCH (22:00)
[2020-10-22 22:19] VITALS: BP 189/112
[2020-10-22 22:46] VITALS: BP 189/102
[2020-10-22] MEDS: CARVEDILOL 3.125 MG TAB PO SCH (22:55)
[2020-10-22] MEDS: ATORVASTATIN 20 MG TAB PO SCH (22:55)
[2020-10-22] MEDS: ACCU-CHEK COMFORT CURVE STRIP VI SCH (22:56)
[2020-10-22] MEDS: GABAPENTIN 300 MG CAP PO SCH (22:56)
[2020-10-22] MEDS: InsuLIN REG 1unit/0.01ml Soln (100units/ml) SC SCH (22:58)
[2020-10-23] MEDS: cloNIDine HCL 0.1 MG TAB PO PRN (00:42)
[2020-10-23 05:00] VITALS: BP 154/86
[2020-10-23] MEDS: GABAPENTIN 300 MG CAP PO SCH ×3 (06:05→21:49)
[2020-10-23] MEDS: ACCU-CHEK COMFORT CURVE STRIP VI SCH ×4 (06:05→21:49)
[2020-10-23] MEDS: INSULIN 70/30 1unit/0.01ml Susp (100units/ml) SC SCH ×2 (06:07→17:44)
[2020-10-23] MEDS: InsuLIN REG 1unit/0.01ml Soln (100units/ml) SC SCH ×4 (06:07→21:51)
[2020-10-23] MEDS: ALBUTEROL SULF HFA 90MCG INH 200DOSE IN SCH ×3 (06:15→19:30)
--- NOTE | 2020-10-23 07:15 | NUR ---
Opening Shift Note Assumed care of patient, awake and alert. No S/S of distress/SOB or pain. Instructed on POC and to call for assist PRN, will continue to monitor for changes Q1hr and PRN. Fall precaution sin place. Patient on 15L Non-rebreather.
[2020-10-23 09:00] VITALS: BP 152/76
[2020-10-23] MEDS ORDERED: PATIENTS OWN MEDICATION (Duloxetine Hcl (Cymbalta) 1 CAP) PO SCH (10:00)
[2020-10-23] MEDS ORDERED: PATIENTS OWN MEDICATION (Nifedipine (Nifedipine Er) 1 TAB) PO SCH (10:00)
--- NOTE | 2020-10-23 10:45 | NUR ---
WOUND CARE NOTE: WOUND CONSULT ORDERED FOR PATIENT UPON ADMIT. PATIENT ADMITTED TO [facility] WITH DIAGNOSIS OF NSTEMI, COVID 19, PNA. CURRENT SHELIA SCORE IS 15. PATIENT IS S/P AMPUTATION OF LEFT # 1 TOE APPROXIMATELY 2 WEEKS AGO. CURRENT SHELIA SCORE IS 16. PATIENT CAN SELF TURN/REPOSITION SELF. DR. THOMPSON RECENTLY CONSULTED WITH PATIENT AND HAS MADE HIS RECOMMENDATIONS. AT THIS TIME, MD WANTS TO LEAVE DRESSING INTACT. PATIENT HAS JARVIS DRAIN AT SITE. SKIN/WOUND CARE PLAN IMPLEMENTED. WILL DEFER ALL RECOMMENDATIONS TO DR. THOMPSON AT THIS POINT FOR LEFT FOOT WOUND. Addendum: 10/23/20 at 1551 by Sho Jc RN Amended: Links added.
--- NOTE | 2020-10-23 11:00 | NUR ---
Physician MD Smith at bedside, aware of patient status. Per MD Smith keep patient's 02 above 88%. Will cont to monitor patient.
[2020-10-23] MEDS: ZINC SULFATE 220mg CAP or TAB PO SCH (11:29)
[2020-10-23] MEDS: CARVEDILOL 3.125 MG TAB PO SCH ×2 (11:30→21:48)
[2020-10-23] MEDS: DexAMETHasone 4 MG TAB PO SCH (11:34)
[2020-10-23] MEDS: DULoxetine HCL 30 MG CAP PO SCH (11:34)
[2020-10-23] MEDS: ASCORBIC ACID 1,000 MG TAB PO SCH (11:35)
[2020-10-23] MEDS: DOXYCYCLINE 100 MG TAB/CAP PO SCH ×2 (11:35→21:49)
[2020-10-23] MEDS: NIFEdipine ER 30 MG TAB PO SCH (11:35)
[2020-10-23] MEDS: ENOXAPARIN SOD 30 MG/0.3 ML SYRINGE SC SCH (11:35)
--- NOTE | 2020-10-23 12:00 | NUR ---
O2 Patient titrated to 11L Oxymizer at this time. Will cont to monitor patient.
--- NOTE | 2020-10-23 12:00 | NUR ---
Insulin Insulin held as patient did not have breakfast and is not eating much throughout the day. Will cont to monitor patient.
[2020-10-23 13:00] VITALS: BP 140/73
[2020-10-23 17:00] VITALS: BP 110/60
[2020-10-23] MEDS: TAMSULOSIN HYDROCHLORIDE 0.4 MG CAP PO SCH (17:44)
--- NOTE | 2020-10-23 19:25 | NUR ---
Opening Shift Note Assumed care of patient. Patient is awake and alert, oriented X 2. Patient is on NRB 12 LPM with shallow irregular respirations and SpO2 98%Patient denies pain at this time. Sitter at bedside for safety. Bed is in lowest position and locked, bed rails 2x, call light is within reach. Instructed on POC and to call for assistance PRN. Will continue to monitor for changes Q1hr and PRN.
[2020-10-23 20:00] VITALS: BP 129/64
[2020-10-23] MEDS: ATORVASTATIN 20 MG TAB PO SCH (21:48)
[2020-10-24 05:00] VITALS: BP 125/67
[2020-10-24] MEDS: ACCU-CHEK COMFORT CURVE STRIP VI SCH ×4 (06:48→22:32)
[2020-10-24] MEDS: InsuLIN REG 1unit/0.01ml Soln (100units/ml) SC SCH ×4 (06:50→22:32)
[2020-10-24] MEDS: ALBUTEROL SULF HFA 90MCG INH 200DOSE IN SCH (06:53)
[2020-10-24] MEDS: INSULIN 70/30 1unit/0.01ml Susp (100units/ml) SC SCH ×2 (06:56→17:30)
--- NOTE | 2020-10-24 07:16 | NUR ---
Opening Shift Note Assumed care of patient, awake and alert. No S/S of distress/SOB or pain. Instructed on POC and to call for assist PRN, will continue to monitor for changes Q1hr and PRN. Fall precaution sin place per safety protocol.
[2020-10-24 07:19] LABS: Basophils # (auto) 0 10 ^3/uL (0-0.2); Basophils % (auto) 0.2 % (0.0-2.0); Eosinophils # (auto) 0 10 ^3/uL (0-0.8); Hematocrit 31.6 % (41.0-53.0); Hemoglobin 10.4 g/dL (13.5-17.5); Lymphocytes # (auto) 0.2 10 ^3/uL (0.4-5.4); Lymphocytes % (auto) 3.4 % (10.0-50.0); Mean Corpuscular Hemoglobin 27.9 pg (28.0-32.0); Mean Corpuscular Hgb Conc. 32.8 g/dL (32.0-36.0); Mean Corpuscular Volume 85.1 fL (80.0-100.0); Monocytes # (auto) 0.4 10 ^3/uL (0-1.3); Monocytes % (auto) 5.9 % (0.0-12.0); Neutrophils # (auto) 6.1 10 ^3/uL (1.6-8.6); Neutrophils % (auto) 90.5 % (37.0-80.0); Nucleated Red Blood Cells % 0.1 %; Platelet Count (auto) 221 10^3/uL (140-450); Red Blood Cells 3.71 10^6/uL (4.5-5.90); Red Cell Distribution Width 14.7 % (11.8-14.3); White Blood Cell 6.7 10^3/uL (4.4-10.8)
[2020-10-24 07:46] LABS: Albumin 2.2 g/dL (3.4-5.0); Calcium 8.9 mg/dL (8.5-10.1); Potassium 4.3 mmol/L (3.5-5.1)
[2020-10-24 07:57] LABS: BUN/Creatinine Ratio 31.4; Bilirubin, Total 0.7 mg/dL (0.2-1.0); CRP High Sensitivity 17.7 mg/dL (< 0.3); Total Protein 6.8 g/dL (6.4-8.2)
[2020-10-24 09:00] VITALS: BP 117/60
[2020-10-24] MEDS: DULoxetine HCL 30 MG CAP PO SCH (09:19)
[2020-10-24] MEDS: GABAPENTIN 300 MG CAP PO SCH ×2 (09:19→22:18)
[2020-10-24] MEDS: DexAMETHasone 4 MG TAB PO SCH (09:19)
[2020-10-24] MEDS: NIFEdipine ER 30 MG TAB PO SCH (09:20)
[2020-10-24] MEDS: DOXYCYCLINE 100 MG TAB/CAP PO SCH ×2 (09:20→22:18)
[2020-10-24] MEDS: CARVEDILOL 3.125 MG TAB PO SCH ×2 (09:20→22:18)
[2020-10-24] MEDS: ENOXAPARIN SOD 30 MG/0.3 ML SYRINGE SC SCH (09:20)
--- NOTE | 2020-10-24 09:35 | NUR ---
Patient transferred to room 244-6 with MARCOS Kent. Patient in no distress, sob, or pain at time of transport.
--- NOTE | 2020-10-24 09:40 | NUR ---
PATIENT ARRIVED ON UNIT. SITTER AT BEDSIDE. ATTEMPTED TO RE-ORIENT PATIENT. CALL LIGHT WITHIN REACH WILL CONTINUE TO MONITOR.
[2020-10-24] MEDS: ZINC SULFATE 220mg CAP or TAB PO SCH (11:07)
[2020-10-24] MEDS: ASCORBIC ACID 1,000 MG TAB PO SCH (11:07)
--- NOTE | 2020-10-24 11:48 | NUR ---
Nutrition Assessment Notes Please refer to link for full assessment notes. Est Energy needs: 6775-6745 kcals (17-20 kcal/kgBW) Est Protein needs: 73-82 gms/day (0.8-0.9 gm/kgBW) d/t pt with elev RFTs Will continue to monitor and reassess prn. Addendum: 10/24/20 at [address] Amended: Links added.
--- NOTE | 2020-10-24 12:20 | NUR ---
Assessment Patient is a 79-year-old male. Assessment was completed with patient son Jian . Prior to admission patient reside home with family and functioned independently. Patient did not use any medical equipment prior to admission. Per Jian Patient will return home to his prior living arrangements post discharge but if Rehabilitation is needed upon discharge day they are receptive to it. Informed Jian he has the right to participate in all discharge planning. Jian verbalized understanding. Addendum: 10/24/20 at 1243 by RAD KELLY Amended: Links added.
[2020-10-24 13:25] VITALS: BP 142/69
[2020-10-24] MEDS ORDERED: THROAT LOZENGES(CEPASTAT) MT PRN (16:45)
[2020-10-24 17:30] VITALS: BP 116/59
[2020-10-24] MEDS: TAMSULOSIN HYDROCHLORIDE 0.4 MG CAP PO SCH (17:36)
[2020-10-24 20:00] VITALS: BP 115/56
--- NOTE | 2020-10-24 20:00 | NUR ---
Opening Shift Note Assumed care of patient, awake and alert. No S/S of distress/SOB or pain. Instructed on POC and to call for assist PRN, will continue to monitor for changes Q1hr and PRN. Sitter at bedside.
[2020-10-24] MEDS: ALBUTEROL SULF HFA 90MCG INH 200DOSE IN PRN (21:28)
[2020-10-24] MEDS: ATORVASTATIN 20 MG TAB PO SCH (22:18)
[2020-10-24 22:47] VITALS: BP 115/56
[2020-10-25 05:00] VITALS: BP 112/62
[2020-10-25] MEDS: INSULIN 70/30 1unit/0.01ml Susp (100units/ml) SC SCH ×2 (06:37→17:37)
[2020-10-25] MEDS: ACCU-CHEK COMFORT CURVE STRIP VI SCH ×4 (06:38→22:00)
[2020-10-25] MEDS: InsuLIN REG 1unit/0.01ml Soln (100units/ml) SC SCH ×4 (06:38→22:00)
[2020-10-25] MEDS: ALBUTEROL SULF HFA 90MCG INH 200DOSE IN PRN (07:33)
--- NOTE | 2020-10-25 07:40 | NUR ---
OPENING SHIFT NOTE PATIENT SLEEPING IN BED. NO SIGNS OF DISTRESS/SOB. SITTER AT BEDSIDE. ON 11L OXYMIZER. SAFETY MEASURES IN PLACE, BED LOCKED IN LOWEST POSITION, CALL LIGHT WITHIN REACH. WILL CONTINUE TO MONITOR.
[2020-10-25 09:00] VITALS: BP 125/64
--- NOTE | 2020-10-25 09:25 | NUR ---
DOCTOR AT BEDSIDE DR. GARRETT AT BEDSIDE, UPDATE ON POC. NO NEW ORDERS RECEIVED. WILL CONTINUE TO MONITOR.
[2020-10-25] MEDS: CARVEDILOL 3.125 MG TAB PO SCH ×2 (10:01→21:45)
[2020-10-25] MEDS: ZINC SULFATE 220mg CAP or TAB PO SCH (10:01)
[2020-10-25] MEDS: GABAPENTIN 300 MG CAP PO SCH ×2 (10:02→21:45)
[2020-10-25] MEDS: NIFEdipine ER 30 MG TAB PO SCH (10:02)
[2020-10-25] MEDS: DULoxetine HCL 30 MG CAP PO SCH (10:02)
[2020-10-25] MEDS: DexAMETHasone 4 MG TAB PO SCH (10:02)
[2020-10-25] MEDS: DOXYCYCLINE 100 MG TAB/CAP PO SCH ×2 (10:03→21:46)
[2020-10-25] MEDS: ENOXAPARIN SOD 30 MG/0.3 ML SYRINGE SC SCH (10:03)
[2020-10-25] MEDS: ASCORBIC ACID 1,000 MG TAB PO SCH (10:03)
[2020-10-25 12:37] VITALS: BP 136/66
[2020-10-25] MEDS: SODIUM BICARBONATE 50ML VIAL 50 ML in SOD CHL 0.45% 1,000 ML IV SCH (12:45)
[2020-10-25 17:00] VITALS: BP 139/61
[2020-10-25] MEDS: BUDESONIDE (INHALATION) 180 MCG IH IN SCH ×2 (17:37→22:00)
[2020-10-25] MEDS: TAMSULOSIN HYDROCHLORIDE 0.4 MG CAP PO SCH (17:37)
--- NOTE | 2020-10-25 19:15 | NUR ---
Opening Shift Note Received report from naun Kent RN. Assumed care of patient, awake and alert. Patient is oriented to self, date of and time, confused at times. No S/S of distress/SOB or pain. Sitter at bedside. Instructed on POC and to call for assist PRN, will continue to monitor for changes Q1hr and PRN. Bed placed in lowest position, bed alarm turned on and call light within reach.
[2020-10-25 20:00] VITALS: BP 143/65
[2020-10-25] MEDS: ATORVASTATIN 20 MG TAB PO SCH (21:44)
[2020-10-25 22:00] VITALS: BP 143/65
--- NOTE | 2020-10-25 22:00 | NUR ---
Patient's blood sugar is 69. Given [place] juice. Patient is resting in bed with eyes closed, no distress noted. On 10L oxymizer saturating at 93%.
[2020-10-26 05:00] VITALS: BP 147/71
[2020-10-26] MEDS: ACCU-CHEK COMFORT CURVE STRIP VI SCH ×4 (06:21→22:00)
[2020-10-26] MEDS: InsuLIN REG 1unit/0.01ml Soln (100units/ml) SC SCH ×4 (06:22→22:46)
[2020-10-26] MEDS: INSULIN 70/30 1unit/0.01ml Susp (100units/ml) SC SCH ×2 (06:22→17:30)
[2020-10-26] MEDS: SODIUM BICARBONATE 50ML VIAL 50 ML in SOD CHL 0.45% 1,000 ML IV SCH ×2 (06:26→09:49)
[2020-10-26 06:43] LABS: Potassium 4.3 mmol/L (3.5-5.1)
[2020-10-26 06:54] LABS: Albumin 2.1 g/dL (3.4-5.0); BUN/Creatinine Ratio 33.9; Bilirubin, Total 0.5 mg/dL (0.2-1.0); Calcium 8.8 mg/dL (8.5-10.1); Total Protein 6.5 g/dL (6.4-8.2)
[2020-10-26] MEDS: BUDESONIDE (INHALATION) 180 MCG IH IN SCH ×2 (07:25→19:44)
[2020-10-26 09:00] VITALS: BP 137/65
--- NOTE | 2020-10-26 10:00 | NUR ---
O2: PATIENT PLACED ON 5LNC, TOLERATING WELL RESPIRATIONS EVEN AND UNLABORED. SPO2 CURRENTLY 92% WILL CONTINUE TO MONITOR.
[2020-10-26] MEDS: ZINC SULFATE 220mg CAP or TAB PO SCH (11:20)
[2020-10-26] MEDS: SODIUM BICARBONATE 50ML VIAL 50 ML in D5W 5% 1,000 ML IV SCH ×2 (11:20→23:33)
[2020-10-26] MEDS: DULoxetine HCL 30 MG CAP PO SCH (11:21)
[2020-10-26] MEDS: CARVEDILOL 3.125 MG TAB PO SCH ×2 (11:21→22:44)
[2020-10-26] MEDS: GABAPENTIN 300 MG CAP PO SCH ×2 (11:22→22:45)
[2020-10-26] MEDS: DexAMETHasone 4 MG TAB PO SCH (11:22)
[2020-10-26] MEDS: ASCORBIC ACID 1,000 MG TAB PO SCH (11:22)
[2020-10-26] MEDS: NIFEdipine ER 30 MG TAB PO SCH (11:22)
[2020-10-26] MEDS: ENOXAPARIN SOD 30 MG/0.3 ML SYRINGE SC SCH (11:23)
--- NOTE | 2020-10-26 11:24 | NUR ---
DAUGHTER REPORTING CONCERNS WITH HOME SITUATION. PER DAUGHTER " AT [facility] ON [address] AND NO ONE IS ABLE TO TAKE CARE OF PATIENT." [phone] CELL PHONE FOR DAUGHTER FROM [place]. WILL CONTINUE TO MONITOR.
[2020-10-26 13:13] VITALS: BP 174/86
[2020-10-26] MEDS: ALBUTEROL SULF HFA 90MCG INH 200DOSE IN PRN ×2 (16:06→19:44)
[2020-10-26 16:39] VITALS: BP 147/74
--- NOTE | 2020-10-26 16:45 | NUR ---
Patient declined P.T. today.
[2020-10-26] MEDS: TAMSULOSIN HYDROCHLORIDE 0.4 MG CAP PO SCH (17:50)
--- NOTE | 2020-10-26 19:10 | NUR ---
Opening Shift Note Received report from naun Miranda RN. Assumed care of patient, awake and alert, but confused. No S/S of distress/SOB or pain. Sitter at bedside. Instructed on POC and to call for assist PRN, will continue to monitor for changes Q1hr and PRN. Bed placed in lowest position, bed alarm turned on and call light with reach.
[2020-10-26 22:00] VITALS: BP 139/78
[2020-10-26] MEDS: ATORVASTATIN 20 MG TAB PO SCH (22:45)
[2020-10-27 05:00] VITALS: BP 145/81
--- NOTE | 2020-10-27 05:45 | NUR ---
Patient had a medium hard brown bowel movement. Bed changed done. Patient tolerated well.
[2020-10-27] MEDS: ACCU-CHEK COMFORT CURVE STRIP VI SCH ×4 (06:08→22:00)
[2020-10-27 06:11] LABS: Potassium 4.1 mmol/L (3.5-5.1)
[2020-10-27 06:43] LABS: BUN/Creatinine Ratio 29.2; Bilirubin, Total 0.5 mg/dL (0.2-1.0); Calcium 8.6 mg/dL (8.5-10.1); Total Protein 6.7 g/dL (6.4-8.2)
[2020-10-27] MEDS: INSULIN 70/30 1unit/0.01ml Susp (100units/ml) SC SCH ×2 (06:47→17:04)
[2020-10-27] MEDS: InsuLIN REG 1unit/0.01ml Soln (100units/ml) SC SCH ×4 (06:48→22:53)
[2020-10-27] MEDS: SODIUM BICARBONATE 50ML VIAL 50 ML in D5W 5% 1,000 ML IV SCH (07:33)
--- NOTE | 2020-10-27 08:50 | NUR ---
O2 TITRATED TO 2LNC.
[2020-10-27 09:00] VITALS: BP 156/85
[2020-10-27] MEDS: BUDESONIDE (INHALATION) 180 MCG IH IN SCH ×2 (10:00→20:48)
[2020-10-27] MEDS: ZINC SULFATE 220mg CAP or TAB PO SCH (10:49)
[2020-10-27] MEDS: ENOXAPARIN SOD 30 MG/0.3 ML SYRINGE SC SCH (10:50)
[2020-10-27] MEDS: CARVEDILOL 3.125 MG TAB PO SCH ×2 (10:50→23:00)
[2020-10-27] MEDS: NIFEdipine ER 30 MG TAB PO SCH (10:50)
[2020-10-27] MEDS: GABAPENTIN 300 MG CAP PO SCH ×2 (10:51→23:00)
[2020-10-27] MEDS: DULoxetine HCL 30 MG CAP PO SCH (10:51)
[2020-10-27] MEDS: ASCORBIC ACID 1,000 MG TAB PO SCH (10:51)
[2020-10-27] MEDS: DexAMETHasone 4 MG TAB PO SCH (10:51)
--- NOTE | 2020-10-27 12:07 | NUR ---
NEW IV TO THE RIGHT FA 20GSL.
--- NOTE | 2020-10-27 12:49 | NUR ---
Nutrition Followup Note Wt: 89.0 kg Pt is positive for COVID in isolation. per RN pt with no distress noted. pt is currently on cardiac diet with fair PO of avg 60% x 4 per RN doc Est Energy needs: 4931-3299 kcals (17-20 kcal/kgBW), Est Protein needs: 73-82 gms/day (0.8-0.9 gm/kgBW) d/t pt with elev RFTs Will continue to monitor and reassess prn. Labs: BUN 86 H CREAT 2.95 H GLU 256 H ALB 2.0 L BM: Pt with 1 BM yesterday per RN note Skin: BS 20 low risk, full details in post acute care nurse note PES: 1) Obesity aeb BMI of 32.5 kg/m2 r/t energy intake in excess of energy needs 2) Altered nutrition related lab values aeb elev RFTs, hyperglycemia, hypoalbuminemia r/t current/chronic medical condition Comments: Will continue to monitor PO status, skin status, pertinent labs and weight trends. Will f/u in 3-5 days Rec: 1) Suggest a CCHO 60g/Cardiac 2gNa diet. 2) If albumin continues trending down with improved RFTs, consider Prostat 1 pkt BID. 3) Continue current plan of care
[2020-10-27 13:08] VITALS: BP 163/65
[2020-10-27 14:19] VITALS: BP 152/86
--- NOTE | 2020-10-27 15:45 | NUR ---
FAMILY UPDATED ON PLAN OF CARE.
[2020-10-27] MEDS: SOD CHL 0.45% 1,000 ML IV SCH ×2 (17:03→20:34)
[2020-10-27 17:06] VITALS: BP 146/84
--- NOTE | 2020-10-27 18:31 | NUR ---
CARE ENDORSED TO NOC RN.
[2020-10-27] MEDS: TAMSULOSIN HYDROCHLORIDE 0.4 MG CAP PO SCH (19:15)
--- NOTE | 2020-10-27 19:25 | NUR ---
Assisted patient for dinner. Patient refused dinner, only wants orange juice at this time. Will monitor
[2020-10-27] MEDS: ALBUTEROL SULF HFA 90MCG INH 200DOSE IN PRN (20:48)
[2020-10-27 22:00] VITALS: BP 152/81
[2020-10-27] MEDS: ATORVASTATIN 20 MG TAB PO SCH (23:00)
[2020-10-28 05:00] VITALS: BP 167/83
[2020-10-28 06:27] LABS: Albumin 2.1 g/dL (3.4-5.0); Calcium 8.8 mg/dL (8.5-10.1); Potassium 4.1 mmol/L (3.5-5.1)
[2020-10-28] MEDS: ACCU-CHEK COMFORT CURVE STRIP VI SCH ×4 (06:29→22:00)
[2020-10-28] MEDS: InsuLIN REG 1unit/0.01ml Soln (100units/ml) SC SCH ×4 (06:31→22:00)
[2020-10-28] MEDS: SOD CHL 0.45% 1,000 ML IV SCH ×2 (06:32→15:45)
[2020-10-28] MEDS: INSULIN 70/30 1unit/0.01ml Susp (100units/ml) SC SCH ×2 (06:32→18:03)
[2020-10-28 06:33] LABS: BUN/Creatinine Ratio 28.8; Bilirubin, Total 0.6 mg/dL (0.2-1.0); Total Protein 6.8 g/dL (6.4-8.2)
[2020-10-28] MEDS: cloNIDine HCL 0.1 MG TAB PO PRN (07:26)
[2020-10-28] MEDS: BUDESONIDE (INHALATION) 180 MCG IH IN SCH ×2 (07:50→20:34)
[2020-10-28 09:00] VITALS: BP 136/87
[2020-10-28] MEDS: ENOXAPARIN SOD 30 MG/0.3 ML SYRINGE SC SCH ×2 (11:39→11:51)
[2020-10-28] MEDS: ZINC SULFATE 220mg CAP or TAB PO SCH (11:39)
[2020-10-28] MEDS: DULoxetine HCL 30 MG CAP PO SCH (11:39)
[2020-10-28] MEDS: GABAPENTIN 300 MG CAP PO SCH ×2 (11:39→22:49)
[2020-10-28] MEDS: ASCORBIC ACID 1,000 MG TAB PO SCH (11:39)
[2020-10-28] MEDS: DexAMETHasone 4 MG TAB PO SCH (11:41)
[2020-10-28] MEDS: CARVEDILOL 3.125 MG TAB PO SCH ×2 (11:42→22:48)
[2020-10-28] MEDS: NIFEdipine ER 30 MG TAB PO SCH (11:42)
[2020-10-28 13:00] VITALS: BP 152/87
[2020-10-28 16:55] VITALS: BP 126/74
[2020-10-28] MEDS: TAMSULOSIN HYDROCHLORIDE 0.4 MG CAP PO SCH (18:06)
[2020-10-28] MEDS: ALBUTEROL SULF HFA 90MCG INH 200DOSE IN PRN (20:34)
[2020-10-28 22:00] VITALS: BP 142/78
[2020-10-28] MEDS: ATORVASTATIN 20 MG TAB PO SCH (22:49)
[2020-10-29] MEDS: SOD CHL 0.45% 1,000 ML IV SCH ×2 (04:15→11:45)
--- NOTE | 2020-10-29 04:45 | NUR ---
Patient is resting in bed, alert and awake, on 2LNC saturating at 96%. No distress noted at this time.
[2020-10-29 05:00] VITALS: BP 151/78
[2020-10-29] MEDS: InsuLIN REG 1unit/0.01ml Soln (100units/ml) SC SCH ×3 (06:04→19:00)
[2020-10-29] MEDS: ACCU-CHEK COMFORT CURVE STRIP VI SCH ×3 (06:04→17:00)
[2020-10-29] MEDS: INSULIN 70/30 1unit/0.01ml Susp (100units/ml) SC SCH ×2 (06:05→19:00)
--- NOTE | 2020-10-29 06:05 | NUR ---
Patient's blood sugar is 66mg/dl. Given orange juice with one pack of sugar. Patient consumed it all. Patient is resting in bed, alert and awake, no distress noted.
[2020-10-29] MEDS: ALBUTEROL SULF HFA 90MCG INH 200DOSE IN PRN (08:22)
[2020-10-29] MEDS: BUDESONIDE (INHALATION) 180 MCG IH IN SCH (08:22)
[2020-10-29 08:37] LABS: Potassium 3.8 mmol/L (3.5-5.1)
[2020-10-29 08:44] LABS: Bilirubin, Total 0.6 mg/dL (0.2-1.0); Calcium 8.6 mg/dL (8.5-10.1); Total Protein 6.7 g/dL (6.4-8.2)
[2020-10-29 09:46] VITALS: BP 120/74
--- NOTE | 2020-10-29 11:00 | NUR ---
SS consult regarding SNF placement. Contacted [facility] and [facility] for bed availability for male + COVID patient. [facility] is at capacity. Contacted Denise, behavioral health case manager, at [facility] and faxed clinical information to request authorization for SNF and transportation. Contacted Jessica, asset management coordinator, and faxed clinical information. Pt accepted to room 204-[address] Cintron and the number for report will be [phone]. Pt will be transported by [facility] for a mixing picker tender of 1500.
--- NOTE | 2020-10-29 11:40 | NUR ---
1130 - 10/29/20 - Contacted by [facility] showcase trimmer Toshia, who stated patient will be transported via [facility] to [facility] at 1500 today going to room 204 bed 2. Informed nurse Samantha with above information.
[2020-10-29] MEDS: DexAMETHasone 4 MG TAB PO SCH (11:46)
[2020-10-29] MEDS: ZINC SULFATE 220mg CAP or TAB PO SCH (11:47)
[2020-10-29] MEDS: DULoxetine HCL 30 MG CAP PO SCH (11:47)
[2020-10-29] MEDS: GABAPENTIN 300 MG CAP PO SCH (11:48)
[2020-10-29] MEDS: CARVEDILOL 3.125 MG TAB PO SCH (11:48)
[2020-10-29] MEDS: ASCORBIC ACID 1,000 MG TAB PO SCH (11:49)
[2020-10-29] MEDS: NIFEdipine ER 30 MG TAB PO SCH (11:49)
[2020-10-29] MEDS: ENOXAPARIN SOD 30 MG/0.3 ML SYRINGE SC SCH (11:49)
--- NOTE | 2020-10-29 14:35 | NUR ---
Spoke with patients daughter Latonia family member updated on poc and patient being d/c to [facility].
[2020-10-29 14:37] VITALS: BP 149/83
--- NOTE | 2020-10-29 16:00 | NUR ---
Late entry: Copeland catheter dc'd Order to discontinue copeland catheter. Copeland dc'd with clean technique following deflation of balloon. Patient tolerated well with no complaints of pain. Continue care.
--- NOTE | 2020-10-29 16:00 | NUR ---
DOCTOR FANOUS AT BEDSIDE REMOVING SUTURES AND JARVIS DRAIN. PATIENT TOLERATED WELL.
[2020-10-29 17:17] VITALS: BP 151/87
[2020-10-29] MEDS: TAMSULOSIN HYDROCHLORIDE 0.4 MG CAP PO SCH (19:00)
--- NOTE | 2020-10-29 19:30 | NUR ---
REPORT GIVEN TO JOSELUIS RODRÍGUEZ WITH [facility].
--- NOTE | 2020-10-29 20:30 | NUR ---
Patient picked up by [facility] for transport to [facility] Discharge instructions given as ordered. All questions and concerns addressed. Patient verbalized understanding. IV removed with catheter intact, pressure dressing applied. Telemetry unit returned to ICU. Patient taken to vehicle via gurney with all personal belongings, accompanied by [facility] staff No distress noted at time of departure.
== END 2020-10-29 20:30 | DRG 177 ==
LOC: ER 16:50 → TELE 16:51 → TELE-CENTR 10-22 22:19 → TELE-E-ADS 10-24 09:13
PROVIDERS: ADMIT Hospitalist; ATTEND Internal Medicine Geriatric Medicine
DX: U07.1 COVID-19 (principal); I21.4 Non-ST elevation (NSTEMI) myocardial infarction; J96.01 Acute respiratory failure with hypoxia; J12.89 Other viral pneumonia; N17.0 Acute kidney failure with tubular necrosis; N18.4 Chronic kidney disease, stage 4 (severe); M86.8X6 Other osteomyelitis, lower leg; E87.0 Hyperosmolality and hypernatremia; E83.41 Hypermagnesemia; D63.1 Anemia in chronic kidney disease; E11.22 Type 2 diabetes mellitus with diabetic chronic kidney disease; E11.51 Type 2 diabetes mellitus with diabetic peripheral angiopathy without gangrene; E11.69 Type 2 diabetes mellitus with other specified complication; E66.9 Obesity, unspecified; E78.5 Hyperlipidemia, unspecified; E88.09 Other disorders of plasma-protein metabolism, not elsewhere classified; G89.4 Chronic pain syndrome; I12.9 Hypertensive chronic kidney disease with stage 1 through stage 4 chronic kidney disease, or unspecified chronic kidney disease; I25.10 Atherosclerotic heart disease of native coronary artery without angina pectoris; N40.1 Benign prostatic hyperplasia with lower urinary tract symptoms; R33.8 Other retention of urine; Z68.32 Body mass index [BMI] 32.0-32.9, adult; Z79.4 Long term (current) use of insulin; Z82.49 Family history of ischemic heart disease and other diseases of the circulatory system; Z89.412 Acquired absence of left great toe; F32.9 Major depressive disorder, single episode, unspecified; Z89.422 Acquired absence of other left toe(s)
CPT/HCPCS: 36415; 36600; 71045; 80048; 80053; 81001; 82306; 82570; 82728; 82805; 82962; 83605; 83615; 83735; 83880; 83970; 84100; 84156; 84300; 84443; 84484; 85025; 85379; 85610; 85730; 86141; 87040; 87081; 87426; 93970; 94640; 97110; 97530; 99291; G0378; J1815; J1956

== ENCOUNTER 2020-11-01 20:37 | Inpatient (IN) | payer OTHER ==
[~2020-11-01] VITALS: Ht 172.7 cm; Wt 90.7 kg
[2020-11-01 22:59] LABS: Albumin 2.1 g/dL (3.4-5.0); BUN/Creatinine Ratio 22.2; Calcium 8.8 mg/dL (8.5-10.1); Magnesium 3.2 mg/dL (1.6-2.6); Potassium 4.3 mmol/L (3.5-5.1)
[2020-11-01 23:00] LABS: Eosinophils # (auto) 0 10 ^3/uL (0-0.8); Hemoglobin 12.4 g/dL (13.5-17.5); Lymphocytes # (auto) 0.7 10 ^3/uL (0.4-5.4); Neutrophils # (auto) 10.4 10 ^3/uL (1.6-8.6); White Blood Cell 11.7 10^3/uL (4.4-10.8)
[2020-11-01 23:01] LABS: Basophils # (auto) 0.1 10 ^3/uL (0-0.2); Basophils % (auto) 0.4 % (0.0-2.0); Eosinophils % (auto) 0.3 % (0.0-7.0); Hematocrit 40.3 % (41.0-53.0); Lymphocytes % (auto) 5.7 % (10.0-50.0); Mean Corpuscular Hgb Conc. 30.9 g/dL (32.0-36.0); Mean Corpuscular Volume 87.5 fL (80.0-100.0); Monocytes # (auto) 0.5 10 ^3/uL (0-1.3); Monocytes % (auto) 4.5 % (0.0-12.0); Neutrophils % (auto) 89.1 % (37.0-80.0); Platelet Count (auto) 208 10^3/uL (140-450); Red Cell Distribution Width 15.5 % (11.8-14.3)
[2020-11-01 23:02] LABS: Bilirubin, Total 0.6 mg/dL (0.2-1.0); Total Protein 7.6 g/dL (6.4-8.2)
[2020-11-01 23:30] LABS: INR 1.31 (0.9-1.15); Partial Thromboplastin Time 25.4 sec (23.0-31.2)
[2020-11-02] MEDS ORDERED: ACETAMINOPHEN 500 MG TAB PO PRN (03:30)
[2020-11-02] MEDS ORDERED: MORPHINE SULF INJ 2 MG/ML SYRINGE 1ML IV PRN (03:30)
[2020-11-02] MEDS ORDERED: DOCUSATE SOD 100 MG CAP PO PRN (03:30)
[2020-11-02] MEDS ORDERED: HYDROcodone-ACET 5/325MG TAB PO PRN (03:30)
[2020-11-02] MEDS ORDERED: ACETAMINOPHEN 325 MG TAB PO PRN (03:30)
[2020-11-02] MEDS ORDERED: DEXTROSE (50%) 50ML SYRG IV PRN (03:30)
[2020-11-02] MEDS ORDERED: NITROGLYCERIN 0.4 MG SL TAB SL PRN (03:30)
[2020-11-02] MEDS ORDERED: ONDANSETRON HCL 4 MG/2 ML VIAL IV PRN (03:30)
[2020-11-02 05:56] LABS: Basophils # (auto) 0.1 10 ^3/uL (0-0.2); Basophils % (auto) 0.5 % (0.0-2.0); Eosinophils # (auto) 0 10 ^3/uL (0-0.8); Eosinophils % (auto) 0.4 % (0.0-7.0); Hemoglobin 11.8 g/dL (13.5-17.5); Lymphocytes # (auto) 0.7 10 ^3/uL (0.4-5.4); Lymphocytes % (auto) 6.6 % (10.0-50.0); Mean Corpuscular Hemoglobin 27.1 pg (28.0-32.0); Mean Corpuscular Hgb Conc. 31.2 g/dL (32.0-36.0); Mean Corpuscular Volume 86.9 fL (80.0-100.0); Monocytes # (auto) 0.6 10 ^3/uL (0-1.3); Monocytes % (auto) 5.1 % (0.0-12.0); Neutrophils # (auto) 9.8 10 ^3/uL (1.6-8.6); Neutrophils % (auto) 87.4 % (37.0-80.0); Nucleated Red Blood Cells % 0.1 %; Platelet Count (auto) 194 10^3/uL (140-450); Red Blood Cells 4.37 10^6/uL (4.5-5.90); Red Cell Distribution Width 15.5 % (11.8-14.3); White Blood Cell 11.2 10^3/uL (4.4-10.8)
[2020-11-02 06:11] LABS: Albumin 1.9 g/dL (3.4-5.0); Calcium 8.7 mg/dL (8.5-10.1); Magnesium 3.6 mg/dL (1.6-2.6); Potassium 4.7 mmol/L (3.5-5.1)
[2020-11-02 06:14] LABS: BUN/Creatinine Ratio 21.9; Bilirubin, Total 0.5 mg/dL (0.2-1.0)
[2020-11-02] MEDS: SODIUM CHLOR 0.9% PF (SALINE LOCK) 10ML VIAL/SYR IV SCH ×3 (06:25→23:21)
[2020-11-02] MEDS: FREE WATER PO SCH ×6 (06:33→23:21)
[2020-11-02] MEDS ORDERED: SOD CHL 0.45% 1,000 ML IV SCH (06:45)
[2020-11-02] MEDS: InsuLIN REG 1unit/0.01ml Soln (100units/ml) SC SCH ×4 (07:04→23:20)
[2020-11-02] MEDS: ACCU-CHEK COMFORT CURVE STRIP VI SCH ×4 (07:05→23:19)
[2020-11-02 08:16] LABS: Cholesterol 101 mg/dL (< 200); HDL Cholesterol 27 mg/dL (40-59); LDL Cholesterol 51 mg/dL (< 100); Triglycerides 131 mg/dL (< 150)
[2020-11-02] MEDS: BUDESONIDE (INHALATION) 180 MCG IH IN SCH ×2 (08:21→21:34)
[2020-11-02] MEDS: cefTRIAXone 1GM/50ML D5W 50 ML IV SCH (09:00)
[2020-11-02] MEDS: DexAMETHasone SOD PHOS 10MG/1ML VIAL INJ IV SCH (10:00)
[2020-11-02] MEDS: MULTIPLE VITAMIN TAB PO SCH (10:00)
[2020-11-02] MEDS: DOXYCYCLINE 100MG/250ML 250 ML IV SCH ×2 (10:00→23:21)
[2020-11-02] MEDS: ZINC SULFATE 220mg CAP or TAB PO SCH (10:00)
[2020-11-02] MEDS: CHOLECALCIFEROL (VITD3) 2,000 UNIT CAP PO SCH (10:00)
[2020-11-02] MEDS: ASCORBIC ACID 1,000 MG TAB PO SCH (10:00)
[2020-11-02] MEDS: FAMOTIDINE (10MG/ML) 2ML VL IV SCH ×2 (10:00→23:21)
[2020-11-02] MEDS: D5W 5% 1,000 ML IV SCH ×2 (10:45→20:45)
[2020-11-02] MEDS: HEPARIN SODIUM (PORCINE) 5000 UNITS/ML 1ML VIAL SC SCH ×2 (10:50→23:20)
[2020-11-02] MEDS: ALBUTEROL SULF HFA 90MCG INH 200DOSE IN PRN ×2 (10:56→21:34)
[2020-11-02] MEDS ORDERED: cloNIDine HCL 0.1 MG TAB PO ONE (17:30)
[2020-11-02 19:17] LABS: BUN/Creatinine Ratio 22.4; Calcium 8.5 mg/dL (8.5-10.1)
[2020-11-03] MEDS: FREE WATER PO SCH ×6 (02:17→21:12)
[2020-11-03] MEDS: SODIUM CHLOR 0.9% PF (SALINE LOCK) 10ML VIAL/SYR IV SCH ×3 (05:45→21:12)
[2020-11-03] MEDS: BUDESONIDE (INHALATION) 180 MCG IH IN SCH ×2 (06:40→18:46)
[2020-11-03] MEDS: ACCU-CHEK COMFORT CURVE STRIP VI SCH ×4 (06:53→21:50)
[2020-11-03] MEDS: InsuLIN REG 1unit/0.01ml Soln (100units/ml) SC SCH ×4 (06:53→21:50)
[2020-11-03 06:56] LABS: Basophils # (auto) 0 10 ^3/uL (0-0.2); Eosinophils # (auto) 0 10 ^3/uL (0-0.8); Lymphocytes # (auto) 0.7 10 ^3/uL (0.4-5.4); Monocytes # (auto) 0.5 10 ^3/uL (0-1.3); Neutrophils # (auto) 9.3 10 ^3/uL (1.6-8.6)
[2020-11-03 06:59] LABS: Basophils % (auto) 0.3 % (0.0-2.0); Hematocrit 32.5 % (41.0-53.0); Hemoglobin 10.3 g/dL (13.5-17.5); Lymphocytes % (auto) 6.7 % (10.0-50.0); Mean Corpuscular Hemoglobin 27.6 pg (28.0-32.0); Mean Corpuscular Hgb Conc. 31.7 g/dL (32.0-36.0); Mean Corpuscular Volume 87.1 fL (80.0-100.0); Nucleated Red Blood Cells % 0.1 %; Platelet Count (auto) 180 10^3/uL (140-450); Red Blood Cells 3.73 10^6/uL (4.5-5.90); Red Cell Distribution Width 15.2 % (11.8-14.3); White Blood Cell 10.6 10^3/uL (4.4-10.8)
[2020-11-03 07:29] LABS: Albumin 1.7 g/dL (3.4-5.0); Bilirubin, Total 0.3 mg/dL (0.2-1.0); Calcium 8.3 mg/dL (8.5-10.1); Magnesium 3.8 mg/dL (1.6-2.6); Total Protein 6.1 g/dL (6.4-8.2)
[2020-11-03 07:46] LABS: BUN/Creatinine Ratio 23.6
[2020-11-03] MEDS: ALBUTEROL SULF HFA 90MCG INH 200DOSE IN PRN ×3 (08:28→21:28)
[2020-11-03] MEDS: cefTRIAXone 1GM/50ML D5W 50 ML IV SCH (10:34)
[2020-11-03] MEDS: CHOLECALCIFEROL (VITD3) 2,000 UNIT CAP PO SCH (10:35)
[2020-11-03] MEDS: DOXYCYCLINE 100MG/250ML 250 ML IV SCH ×2 (10:35→21:12)
[2020-11-03] MEDS: ASCORBIC ACID 1,000 MG TAB PO SCH (10:36)
[2020-11-03] MEDS: ZINC SULFATE 220mg CAP or TAB PO SCH (10:37)
[2020-11-03] MEDS: MULTIPLE VITAMIN TAB PO SCH (10:37)
[2020-11-03] MEDS: HEPARIN SODIUM (PORCINE) 5000 UNITS/ML 1ML VIAL SC SCH ×2 (10:37→21:12)
[2020-11-03] MEDS: FAMOTIDINE (10MG/ML) 2ML VL IV SCH ×2 (10:38→21:12)
[2020-11-03] MEDS: DexAMETHasone SOD PHOS 10MG/1ML VIAL INJ IV SCH (11:41)
[2020-11-03] MEDS: D5W 5% 1,000 ML IV SCH ×3 (12:52→21:12)
[2020-11-04] MEDS: FREE WATER PO SCH ×6 (01:18→22:35)
[2020-11-04 03:39] LABS: Basophils # (auto) 0 10 ^3/uL (0-0.2); Eosinophils # (auto) 0 10 ^3/uL (0-0.8); Eosinophils % (auto) 0.1 % (0.0-7.0); Hemoglobin 8.9 g/dL (13.5-17.5); Mean Corpuscular Volume 88.8 fL (80.0-100.0); Monocytes # (auto) 0.9 10 ^3/uL (0-1.3); Monocytes % (auto) 5.4 % (0.0-12.0); Neutrophils # (auto) 14.3 10 ^3/uL (1.6-8.6); Neutrophils % (auto) 88.1 % (37.0-80.0); White Blood Cell 16.2 10^3/uL (4.4-10.8)
[2020-11-04 03:40] LABS: Basophils % (auto) 0.3 % (0.0-2.0); Hematocrit 29.2 % (41.0-53.0); Lymphocytes % (auto) 6.1 % (10.0-50.0); Mean Corpuscular Hemoglobin 27.2 pg (28.0-32.0); Mean Corpuscular Hgb Conc. 30.6 g/dL (32.0-36.0); Nucleated Red Blood Cells % 0.1 %; Platelet Count (auto) 185 10^3/uL (140-450); Red Blood Cells 3.29 10^6/uL (4.5-5.90); Red Cell Distribution Width 15.5 % (11.8-14.3)
[2020-11-04] MEDS: SODIUM CHLOR 0.9% PF (SALINE LOCK) 10ML VIAL/SYR IV SCH ×3 (06:00→22:35)
[2020-11-04] MEDS: InsuLIN REG 1unit/0.01ml Soln (100units/ml) SC SCH ×3 (06:37→23:51)
[2020-11-04] MEDS: ACCU-CHEK COMFORT CURVE STRIP VI SCH ×3 (06:38→23:50)
[2020-11-04] MEDS: D5W 5% 1,000 ML IV SCH ×2 (06:41→10:20)
[2020-11-04] MEDS: ALBUTEROL SULF HFA 90MCG INH 200DOSE IN PRN (06:47)
[2020-11-04] MEDS: BUDESONIDE (INHALATION) 180 MCG IH IN SCH ×2 (06:47→19:34)
[2020-11-04] MEDS: cefTRIAXone 1GM/50ML D5W 50 ML IV SCH (09:00)
[2020-11-04] MEDS: ASCORBIC ACID 1,000 MG TAB PO SCH (09:00)
[2020-11-04] MEDS: MULTIPLE VITAMIN TAB PO SCH (09:00)
[2020-11-04] MEDS: ZINC SULFATE 220mg CAP or TAB PO SCH (09:00)
[2020-11-04] MEDS: DexAMETHasone SOD PHOS 10MG/1ML VIAL INJ IV SCH (09:00)
[2020-11-04] MEDS: FAMOTIDINE (10MG/ML) 2ML VL IV SCH (09:00)
[2020-11-04] MEDS: DOXYCYCLINE 100MG/250ML 250 ML IV SCH ×2 (09:00→22:49)
[2020-11-04] MEDS: CHOLECALCIFEROL (VITD3) 2,000 UNIT CAP PO SCH (09:00)
[2020-11-04] MEDS: HEPARIN SODIUM (PORCINE) 5000 UNITS/ML 1ML VIAL SC SCH ×2 (10:00→22:36)
[2020-11-04 10:15] LABS: Albumin 1.7 g/dL (3.4-5.0); Calcium 8.1 mg/dL (8.5-10.1)
[2020-11-04 10:28] LABS: BUN/Creatinine Ratio 23.3; Bilirubin, Total 0.2 mg/dL (0.2-1.0); Total Protein 5.6 g/dL (6.4-8.2)
[2020-11-04 10:43] LABS: Potassium 5.8 mmol/L (3.5-5.1)
[2020-11-04 10:52] LABS: INR 1.39 (0.9-1.15)
[2020-11-04] MEDS ORDERED: SODIUM BICARBONATE 50ML VIAL 50 ML in D5W 5% 1,000 ML IV SCH (15:50)
[2020-11-04] MEDS ORDERED: FUROSEMIDE 100 MG/10ML VIAL IV ONE (16:00)
[2020-11-04] MEDS: SODIUM BICARBONATE 50ML VIAL 50 ML in D5W 5% 1,000 ML IV SCH (16:00)
[2020-11-04 16:11] LABS: Creatinine, Urine 135 mg/dL (30.0-125.0); Sodium Urine 24 mmol/L (40-220)
[2020-11-04 16:13] LABS: Protein, Urine 82.5 mg/dL (0.0-11.9)
[2020-11-04 16:20] VITALS: BP 130/79
[2020-11-04 16:35] VITALS: BP 130/77
[2020-11-04] MEDS ORDERED: DEXTROSE (50%) 50ML SYRG IV SCH (18:00)
[2020-11-04 19:00] VITALS: BP 173/106
[2020-11-04] MEDS: PANTOPRAZOLE 40 MG/10 ML VIAL INJ IV SCH (22:49)
[2020-11-04] MEDS ORDERED: SODIUM BICARBONATE 8.4% INJ 50ML SYRINGE ONE (23:03)
[2020-11-05] MEDS: SODIUM BICARBONATE 50ML VIAL 50 ML in D5W 5% 1,000 ML IV SCH ×2 (01:46→06:33)
[2020-11-05] MEDS: FREE WATER PO SCH ×3 (01:47→10:00)
[2020-11-05 04:15] VITALS: BP 100/49
[2020-11-05 04:30] VITALS: BP 112/74
[2020-11-05 06:05] VITALS: BP 121/77
[2020-11-05] MEDS: SODIUM CHLOR 0.9% PF (SALINE LOCK) 10ML VIAL/SYR IV SCH (06:33)
[2020-11-05] MEDS: ACCU-CHEK COMFORT CURVE STRIP VI SCH ×2 (06:34→13:19)
[2020-11-05] MEDS: InsuLIN REG 1unit/0.01ml Soln (100units/ml) SC SCH ×2 (06:34→13:22)
[2020-11-05] MEDS: BUDESONIDE (INHALATION) 180 MCG IH IN SCH (07:45)
[2020-11-05] MEDS: ALBUTEROL SULF HFA 90MCG INH 200DOSE IN PRN (07:45)
[2020-11-05] MEDS: cefTRIAXone 1GM/50ML D5W 50 ML IV SCH (08:42)
[2020-11-05] MEDS: CHOLECALCIFEROL (VITD3) 2,000 UNIT CAP PO SCH (10:00)
[2020-11-05] MEDS: HEPARIN SODIUM (PORCINE) 5000 UNITS/ML 1ML VIAL SC SCH (10:00)
[2020-11-05] MEDS: MULTIPLE VITAMIN TAB PO SCH (10:00)
[2020-11-05] MEDS: DexAMETHasone SOD PHOS 10MG/1ML VIAL INJ IV SCH (10:00)
[2020-11-05] MEDS: ASCORBIC ACID 1,000 MG TAB PO SCH (10:00)
[2020-11-05] MEDS: ZINC SULFATE 220mg CAP or TAB PO SCH (10:00)
[2020-11-05] MEDS: PANTOPRAZOLE 40 MG/10 ML VIAL INJ IV SCH (10:00)
[2020-11-05 10:26] LABS: Basophils # (auto) 0 10 ^3/uL (0-0.2); Basophils % (auto) 0.2 % (0.0-2.0); Eosinophils # (auto) 0 10 ^3/uL (0-0.8); Hemoglobin 9.5 g/dL (13.5-17.5); Lymphocytes # (auto) 1.1 10 ^3/uL (0.4-5.4); Lymphocytes % (auto) 5.6 % (10.0-50.0); Mean Corpuscular Hemoglobin 28.6 pg (28.0-32.0); Mean Corpuscular Hgb Conc. 32.6 g/dL (32.0-36.0); Mean Corpuscular Volume 87.8 fL (80.0-100.0); Monocytes # (auto) 1.3 10 ^3/uL (0-1.3); Monocytes % (auto) 6.6 % (0.0-12.0); Neutrophils # (auto) 16.8 10 ^3/uL (1.6-8.6); Neutrophils % (auto) 87.6 % (37.0-80.0); Nucleated Red Blood Cells % 0.4 %; Platelet Count (auto) 137 10^3/uL (140-450); Red Cell Distribution Width 14.3 % (11.8-14.3); White Blood Cell 19.2 10^3/uL (4.4-10.8)
[2020-11-05 10:47] LABS: Albumin 1.8 g/dL (3.4-5.0); Calcium 8.2 mg/dL (8.5-10.1)
[2020-11-05 10:50] LABS: BUN/Creatinine Ratio 23.3; Bilirubin, Total 0.3 mg/dL (0.2-1.0); Total Protein 5.4 g/dL (6.4-8.2)
[2020-11-05 11:09] LABS: Potassium 5.8 mmol/L (3.5-5.1)
[2020-11-05] MEDS ORDERED: DOPamine 1600MCG/ML D5W 250 ML IV SCH (11:30)
[2020-11-05] MEDS ORDERED: SODIUM CHL 0.9% 1000 ML BAG XX ONE (11:30)
[2020-11-05] MEDS ORDERED: ETOMIDATE (2MG/ML) 20ML VIAL IV ONE ×2 (16:17→16:45)
[2020-11-05] MEDS ORDERED: MIDAZOLAM DRIP 50 mg/50mL 50 ML IV ONE (16:18)
[2020-11-05 16:22] VITALS: BP 98/62
[2020-11-05] MEDS ORDERED: MIDAZOLAM DRIP 50 mg/50mL 50 ML IV SCH (16:45)
[2020-11-05] MEDS ORDERED: PANTOPRAZOLE 40 MG/10 ML VIAL INJ IV ONE (17:00)
[2020-11-05] MEDS ORDERED: PANTOPRAZOLE 40mg/50ML NS AE 50 ML IV SCH (17:00)
[2020-11-05] MEDS ORDERED: NOREPINEPHRINE 8 MG/250ML KIT 250 ML IV ONE (17:43)
[2020-11-05] MEDS ORDERED: NOREPINEPHRINE 8 MG/250ML KIT 250 ML IV SCH ×2 (17:45→18:15)
[2020-11-05] MEDS ORDERED: EPINEPHrine HCL 1 MG/10 ML SYRG IV ONE (18:34)
[2020-11-05] MEDS ORDERED: SODIUM BICARBONATE 8.4% INJ 50ML SYRINGE IV ONE (18:34)
[2020-11-05] MEDS ORDERED: LIDOCAINE HCL 100 MG/5ML (2%) SYRG INJ IV ONE (18:34)
[2020-11-05] MEDS ORDERED: CALCIUM CHLOR(10%) 100MG/ML 10ML SYRINGE IV ONE (18:34)
[2020-11-05] MEDS ORDERED: EPOETIN ALFA 10,000 UNIT/1 ML VIAL SC ONE (21:00)
== END 2020-11-05 18:35 | DRG 871 ==
LOC: ER 20:37 → EDBD 20:37 → TELE 20:38
PROVIDERS: ADMIT Nurse Practitioner Family; ATTEND Internal Medicine Geriatric Medicine
PROC: 30233N1 Transfusion of Nonautologous Red Blood Cells into Peripheral Vein, Percutaneous Approach (ICD-10-PCS; principal; 2020-11-04)
PROC: 5A12012 Performance of Cardiac Output, Single, Manual (ICD-10-PCS; 2020-11-05)
PROC: 5A1D70Z Performance of Urinary Filtration, Intermittent, Less than 6 Hours Per Day (ICD-10-PCS; 2020-11-05)
PROC: 5A1935Z Respiratory Ventilation, Less than 24 Consecutive Hours (ICD-10-PCS; 2020-11-05)
PROC: 0BH17EZ Insertion of Endotracheal Airway into Trachea, Via Natural or Artificial Opening (ICD-10-PCS; 2020-11-05)
DX: A41.89 Other specified sepsis (principal); U07.1 COVID-19; J96.01 Acute respiratory failure with hypoxia; G93.41 Metabolic encephalopathy; N18.6 End stage renal disease; J12.89 Other viral pneumonia; E87.0 Hyperosmolality and hypernatremia; E87.2 Acidosis; J98.11 Atelectasis; K92.1 Melena; I13.2 Hypertensive heart and chronic kidney disease with heart failure and with stage 5 chronic kidney disease, or end stage renal disease; M86.8X6 Other osteomyelitis, lower leg; N17.9 Acute kidney failure, unspecified; E11.69 Type 2 diabetes mellitus with other specified complication; E11.65 Type 2 diabetes mellitus with hyperglycemia; E87.5 Hyperkalemia; D63.1 Anemia in chronic kidney disease; E78.00 Pure hypercholesterolemia, unspecified; I50.9 Heart failure, unspecified; F32.9 Major depressive disorder, single episode, unspecified; E86.0 Dehydration; K59.00 Constipation, unspecified; E11.22 Type 2 diabetes mellitus with diabetic chronic kidney disease; E78.5 Hyperlipidemia, unspecified; Z99.2 Dependence on renal dialysis; Z68.30 Body mass index [BMI] 30.0-30.9, adult; Z89.412 Acquired absence of left great toe; Z82.49 Family history of ischemic heart disease and other diseases of the circulatory system; Z79.4 Long term (current) use of insulin; Z79.899 Other long term (current) drug therapy; I46.9 Cardiac arrest, cause unspecified
CPT/HCPCS: 36415; 36600; 51702; 71045; 76775; 80048; 80053; 80061; 82270; 82570; 82728; 82805; 82962; 83735; 83880; 84156; 84300; 84484; 85025; 85379; 85610; 85730; 86850; 86900; 86901; 86920; 87070; 87205; 87426; 90935; 93005; 93970; 94002; 94640; C9113; G0378; J0696; J0885; J1100; J1815; J2250; J3490